=== PATIENT | male | born 1960 | race Caucasian/White ===

== ENCOUNTER 2019-07-25 17:53 | Emergency (ER) | payer OTHER, SELFPAY ==
[2019-07-25] VITALS (16 sets, daily range): BP systolic 120–160; BP diastolic 68–84; PULSE 79–101; RESP 18–23; TEMP 36.9; O2SAT 94–98
--- NOTE | 2019-07-25 17:59 | DI.RAD_ITS ---
SYMPTOMS/DIAGNOSIS: CHEST PAIN PA AND LATERAL CHEST: There are no prior comparison. The heart size is normal. The aorta is mildly tortuous and shows mild calcification. The lungs appear clear. There is an old left lateral rib fracture. There are mild degenerative changes of the thoracic spine. IMPRESSION: No acute abnormality.
--- NOTE | 2019-07-25 18:00 | ED.GENADUL_ITS ---
Discharge Plan Disposition Patient Disposition: HOME Condition: Stable Discharge Details Chief Complaint: Chest Pain Clinical Impression: Chest pain ED Provider: Gabo Fonseca Home Meds and New Rx's Prescriptions: Continued trazodone 100 mg Tablet 100 mg PO QHS RF: 0 lisinopril 10 mg Tablet 10 mg PO DAILY RF: 0 folic acid 1 mg Tablet 1 mg PO DAILY RF: 0 hydroxyzine HCl 10 mg Tablet 10 mg PO TID PRNRF: 0 cholecalciferol (vitamin D3) [Vitamin D3] 5,000 unit Tablet 5,000 unit PO DAILY RF: 0 thiamine mononitrate (vit B1) 100 mg Tablet 100 mg PO DAILY RF: 0 Discharge Instructions Instructions: Chest Pain (ED) Additional Instructions: your blood work and xray did not show any concerning findings follow up with your primary care provider within 1 week if you feel more ill, have more pain or worsening difficulty breathing return to the emergency department Medical Decision Making 59 yo male with hx of htn comes in with chief complaint of epigastric/lower chest pain. He states the pain has been going on intermittently for a month and seems to happen after eating. Denies radiation of pain and no pain with exertion. He denies any pain now and last had pain this AM. He called his pcp's officewho refered him here for an eval. His symptoms do not sound typical of acs and his heart score is 2. Will obtian troponin and given over 4 hours since last pain do not feel delta troponin would be of enefit if first is negative. He has no abdominal tenderness, no ruq pain or mercer's sign, doubt acute surgical pathology such as cholecystitis, sbo or pneumoperitoneum. No hypoxia or evidence of dvt so doubt PE and no tearing back pain andn ormal vascular exam so doubt dissection at this time pt remains asymptomatic and hd stable, labs and xray unremarkbable. Feel he is safe for d/c and f/u with pcp and return precautions given Differential Diagnosis nstemi, gastritis, gerd Imaging Data Radiologic Study: Attestation: I personally reviewed and interpreted this imaging study as follows: Imaging: X-Ray Radiologist's impression: no acute findings Lab Data Lab results reviewed: Yes I reviewed the patient's lab results. ECG Data Attestation: I personally reviewed and interpreted this ECG (s) as follows: Prior ECG tracings: not available for review Interpretation: sinus rhythm, rate of 95, pr 128, no acute st t wave ischemic findings HPI General Mode of arrival: ambulatory . Date/Time Provider Initiated Documentation: 07/25/19 17:59 . Limitations to Documentation: no limitations . Information obtained by: patient . History of Present Illness 59 year old M presents to the emergency department with the chief complaint of epigastric pain, described as mild, Quality is described as aching, and is localized to the chest and abdomen. Patient reports no radiation. Patient started experiencing this month(s) (1) and it has been intermittent. No relieving factors improve symptom(s), Eating worsens symptoms . Patient notes no other symptoms.. Patient did receive the following treatments prior to arrival, none Related Data Home Medications Medication Instructions Recorded Confirmed cholecalciferol (vitamin D3) 5,000 unit PO DAILY 07/25/19 07/25/19 [Vitamin D3] folic acid 1 mg PO DAILY 07/25/19 07/25/19 hydroxyzine HCl 10 mg PO TID PRN 07/25/19 07/25/19 lisinopril 10 mg PO DAILY 07/25/19 07/25/19 thiamine mononitrate (vit B1) 100 mg PO DAILY 07/25/19 07/25/19 trazodone 100 mg PO QHS 07/25/19 07/25/19 Allergies Allergy/AdvReac Type Severity Reaction Status Date / Time lactose AdvReac intolerant Unverified 07/25/19 18:03 Review of Systems Review of Systems All systems reviewed & are unremarkable except as noted in HPI and below Constitutional Denies chills, Denies fever(s) and Denies weakness Cardiovascular Denies dyspnea Respiratory Denies cough and Denies dyspnea Gastrointestinal Denies nausea and Denies vomiting Musculoskeletal Denies joint swelling Neurologic Denies weakness PFSH Social History Smoking/Tobacco Use Status: Former Tobacco Use Alcohol Intake: former Drug use: Current Sobriety Do you feel safe at home: Yes Do you feel safe in your relationship?: Yes Exam Const General: no acute distress Orientation: alert HENMT Head: normal to inspection Ears: external ears normal General nose exam: external nose normal Mouth: moist mucous membranes Eyes General: appearance normal, both eyes and all related structures Neck Neck: normal visual inspection Resp Effort & Inspection: normal respiratory effort and able to speak in complete sentences Cardio Rate: regular rate GI Palpation: soft Skin General skin exam: no rashes or lesions noted Neuro General: alert and oriented x3 Extrem General: normal to inspection Psych Mental Status: mental status grossly normal
[2019-07-25 18:29] LABS: Abs Immature Grans 0.08 k/cumm (0.0-0.09); Absolute Basophil Count 0.05 k/cumm (0.0-0.2); Absolute Eosinophil Count 0.21 k/cumm (0.0-0.7); Absolute Lymphocyte Count 2.05 k/cumm (1.2-3.4); Absolute Monocyte Count 0.65 k/cumm (0.11-0.7); Absolute Neutrophil Count 5.81 k/cumm (1.2-6.7); Basophils % 0.6; Eosinophils % 2.4; HCT 43.8 % (40.0-50.0); HGB 14.4 g/dL (13.5-17.5); Immature Grans % 0.9; Lymphocytes % 23.2; Mean Corp. HGB Concentration 32.9 g/dL (32.0-36.0); Mean Corpuscular Hemoglobin 31.2 pg (27.0-33.0); Mean Platelet Volume 9.2 fL (8.0-11.0); Monocytes % 7.3; Neutrophils % 65.6; Platelet Count 315 x1000/uL (130-400); RBC 4.61 m/cumm (4.50-6.00); RBC Distribution Width 12.2 % (11.8-14.1); White Blood Cell Count 8.85 k/cumm (4.4-10.8)
--- NOTE | 2019-07-25 18:36 | DI.VRAD_ITS ---
EXAM: XR Chest, 2 Views EXAM DATE/TIME: 07/25/2019 6:00 PM CLINICAL HISTORY: 59 years old, male; Chest pain; Type not specified TECHNIQUE: Imaging protocol: XR of the chest Views: 2 views. COMPARISON: No relevant prior studies available. FINDINGS: Lungs: Unremarkable. No consolidation. Pleural space: Unremarkable. No pleural effusion. No pneumothorax. Heart/Mediastinum: Unremarkable. No cardiomegaly. Vasculature: Calcification of the thoracic aorta and/or great vessels consistent with atherosclerotic vessel disease. Bones/joints: Unremarkable. IMPRESSION: No acute findings. Dictated and Authenticated by: Gabo Jacobo MD. Ordering:JAMES Ayon MD
[2019-07-25 18:48] LABS: ALT 26 U/L (16-63); AST 17 U/L (15-37); Albumin 3.8 g/dL (3.4-5.0); Alkaline Phosphatase 57 U/L (46-116); Anion Gap 8.8 mmol/L (3-11); BUN 15 mg/dL (7-18); Bilirubin, Total 0.3 mg/dL (0.2-1.0); CO2 28.2 mmol/L (21.0-32.0); CREATININE 1.15 mg/dL (0.70-1.30); Calcium 8.4 mg/dL (8.5-10.1); Chloride 101 mmol/L (98-107); Glucose 141 mg/dL (70-100); Potassium 4.1 mmol/L (3.5-5.1); Sodium 138 mmol/L (136-145); Total Protein 7.7 g/dL (6.4-8.2)
[2019-07-25 18:49] LABS: Troponin I < 0.05 ng/mL (0.00-0.06)
[2019-07-25 18:55] LABS: Lipase 135 U/L (73-393)
== END 2019-07-25 19:05 | disposition home or self-care (01) ==
PROVIDERS: Emergency Provider Emergency Medicine; PCP Physician Assistant Medical
DX: R10.13 Epigastric pain (principal); R07.9 Chest pain, unspecified; I10 Essential (primary) hypertension
CPT/HCPCS: 36415; 80053; 83690; 93005; 99285; 71046; 84484; 85025; 93010; 99284

== ENCOUNTER 2019-10-04 10:29 | Emergency (ER) | payer OTHER, SELFPAY ==
[2019-10-04 10:50] VITALS: BP 158/87; PULSE 92; RESP 18; TEMP 36.8; O2SAT 99
--- NOTE | 2019-10-04 11:30 | DI.RAD_ITS ---
EXAM: XR ANKLE RT COMPLETE and right foot INDICATION: pain. COMPARISON: No priors for comparison. TECHNIQUE: 2D digital imaging was performed. FINDINGS: There is a fracture of the distal right fibula. There is mild lateral displacement of the distal fra cture. No other fracture or dislocation is seen in the ankle or foot. There are mild degenerative c hanges seen in the ankle and foot. There is soft tissue swelling about the ankle particularly latera lly. IMPRESSION: Mildly displaced fracture of the distal right fibula.
--- NOTE | 2019-10-04 16:34 | ED.GENADUL_ITS ---
Discharge Plan Disposition Patient Disposition: HOME Condition: Good Discharge Details Chief Complaint: Orthopedic Clinical Impression: Ankle fracture Primary Care Provider: Lola Dsouza ED Provider: Amairani Gaspar Home Meds and New Rx's Prescriptions: No Action trazodone 100 mg Tablet 100 mg PO QHS RF: 0 lisinopril 10 mg Tablet 10 mg PO DAILY RF: 0 folic acid 1 mg Tablet 1 mg PO DAILY RF: 0 hydroxyzine HCl 10 mg Tablet 10 mg PO TID PRNRF: 0 cholecalciferol (vitamin D3) [Vitamin D3] 5,000 unit Tablet 5,000 unit PO DAILY RF: 0 thiamine mononitrate (vit B1) 100 mg Tablet 100 mg PO DAILY RF: 0 Discharge Instructions Instructions: Ankle Fracture (ED) Additional Instructions: Rest. Activities as tolerated. Elevate injury to prevent swelling. Crutches and fracture boot for managment of your fibula fracture Ice to the area of discomfort for 15 min. 3-5 times daily. Motrin every 8 hours with food or Tylenol every 6 hours for soreness if needed o lizett the counter for comfort. Followup with orthopedic doctor as discussed for reevaluation. Return for any worsening or concerns sooner if needed. Referrals: Jensen Paredes MD [ [facility] STAFF PHYSICIAN] - Discharge Data Discharge Date/Time-TO BE ENTERED AT DEPARTURE: 10/04/19 12:50 Medical Decision Making Is a 59-year-old patient who presents after a slip and fall on a hill 4 days ago. Patient ultimately presents with isolated right ankle pain. On exam has lateral malleolus tenderness. X-rays were obtained of the ankle and the foot. Of note patient has moderate bilateral distal edema for which we discussed evaluation today as well as conservative treatments. He does not have any desire to work this up at this time as he is planning to follow-up with his primary care doctor for this and has already been seen by primary care doctor for this. Once again patient was encouraged to elevate legs regularly as well as use of compression stockings and low-salt diet. X-rays of patient's ankle reveal a fibula fracture which is mildly displaced. Fracture boot was ordered. Rice encouraged, crutches provided. Encourage follow-up with customer operations specialist. The patient was stable and requested discharge. Prior to discharge, my usual and customary return precautions were reviewed with the patient - this included follow-up instructions and reasons to return to the Emergency Department if conditions worsens, does not improve as expected, or other new concerns arise. HPI General Date/Time Provider Initiated Documentation: 10/04/19 10:33 . HPI Narrative: This a patient who reports 4 days ago he had a trip and fall on a hill where he rolled his right ankle. Patient reports persistent ankle pain since that time with ambulation. Patient reports baseline swelling of his distal extremities. Patient has been working with his primary care doctor on bilateral lower leg edema. Patient reports she is not concerned with the bilateral edema which seems unchanged at this time but is concerned with right ankle pain only. Denies associated numbness, tingling or weakness. Patient denies any other sites of pain during the fall. Denies head neck or back pain. No upper extremity complaints. No open wounds on the ankle. Related Data Home Medications Medication Instructions Recorded Confirmed cholecalciferol (vitamin D3) 5,000 unit PO DAILY 07/25/19 10/04/19 [Vitamin D3] folic acid 1 mg PO DAILY 07/25/19 10/04/19 hydroxyzine HCl 10 mg PO TID PRN 07/25/19 10/04/19 lisinopril 10 mg PO DAILY 07/25/19 10/04/19 thiamine mononitrate (vit B1) 100 mg PO DAILY 07/25/19 10/04/19 trazodone 100 mg PO QHS 07/25/19 10/04/19 Allergies Allergy/AdvReac Type Severity Reaction Status Date / Time lactose AdvReac intolerant Unverified 10/04/19 10:55 General Stated Complaint: Orthopedic ROB: 4 Review of Systems All systems reviewed & are unremarkable except as noted in HPI and below Constitutional Constitutional: Denies chills, Denies fatigue, Denies fever(s), Denies headache(s) and Denies malaise ENT Ears, Nose, Mouth, and Throat: Denies headache(s) Musculoskeletal Musculoskeletal: Denies back pain, Denies deformity, Denies numbness and Denies tingling Integumentary/Breasts Skin/Breast: Denies wounds Neurologic Neurologic: Denies headache(s), Denies numbness and Denies tingling Endocrine Endocrine: Denies fatigue [facility] Social History Smoking/Tobacco Use Status: Former Tobacco Use Alcohol Intake: former Drug use: Current Sobriety Do you feel safe at home: Yes Do you feel safe in your relationship?: Yes Exam Narrative Exam Narrative: CONST: Healthy appearing patient, in no acute distress. Well hydrated. Alert and alert. NECK: Normal visual inspection. FROM. Trachea midline. No Midline tenderness. MUSCULOSKELETAL: Normal Gait. Straight leg raise intact, no knee pain with palpation motion pain with palpation. Distal edema symmetrical bilaterally, 2+. Patient with no significant Achilles tenderness. Obvious tenderness noted to the lateral malleolus, mild medial malleolus tenderness. Limited flexion extension due to pain. Ecchymosis noted to the lateral aspect of the ankle. Pulses intact distally. No obvious foot drop. SKIN: Normal. Dry. No rashes. NEURO: Alert and awake. Speech clear. PSYCH: Normal affect. Cooperative. Course Vital Signs Vital signs: Vital Signs Temperature 36.8 C 10/04/19 10:50 Pulse 92 H 10/04/19 10:50 Respiratory Rate 18 10/04/19 10:50 Blood Pressure 158/87 H 10/04/19 10:50 Pulse Oximetry 99 10/04/19 10:50 Temperature 36.8 C 10/04/19 10:50 Temperature Source Skin 10/04/19 10:50 Pulse 92 H 10/04/19 10:50 Respiratory Rate 18 10/04/19 10:50 Respiratory Effort 10/04/19 10:57 Blood Pressure 158/87 H 10/04/19 10:50 Blood Pressure Position Sitting 10/04/19 10:50 Pulse Oximetry 99 10/04/19 10:50 Oxygen Delivery Method Room Air 10/04/19 10:50 Oxygen Flow Rate 0 10/04/19 10:50 Pain Level 5 10/04/19 12:22
== END 2019-10-04 12:50 | disposition home or self-care (01) ==
PROVIDERS: Emergency Provider Physician Assistant; PCP Physician Assistant Medical
DX: S82.891A Other fracture of right lower leg, initial encounter for closed fracture (principal); W17.81XA Fall down embankment (hill), initial encounter
CPT/HCPCS: 99284; 73610; 73630; 99282; E0114; L4361

== ENCOUNTER 2019-10-11 09:21 | Outpatient (CLI) | payer OTHER, SELFPAY ==
--- NOTE | 2019-10-11 09:02 | DI.RAD_ITS ---
EXAM: XR ANKLE RT COMPLETE INDICATION: f/u fracture. COMPARISON: No exams were available for comparison TECHNIQUE: 2D digital imaging was performed. FINDINGS: There has been no change in the alignment of the distal fibular fracture. Some soft tissue swelling remains present.
== END 2019-10-11 09:41 ==
PROVIDERS: PCP Physician Assistant Medical; Visit Provider Student in an Organized Health Care Education/Training Program
DX: S82.831D Other fracture of upper and lower end of right fibula, subsequent encounter for closed fracture with routine healing (principal); M79.89 Other specified soft tissue disorders
CPT/HCPCS: 73610

== ENCOUNTER 2019-11-29 09:37 | Outpatient (CLI) | payer OTHER, SELFPAY ==
--- NOTE | 2019-11-29 09:01 | DI.RAD_ITS ---
EXAM: XR ANKLE RT COMPLETE INDICATION: f/u fracture. COMPARISON: XR ANKLE RT COMPLETE from 10/11/2019 TECHNIQUE: 2D digital imaging was performed. FINDINGS: There has been no change in the alignment of the previously noted lateral malleolar fracture. There is increased callous formation. No new abnormalities are seen.
== END 2019-11-29 09:57 ==
PROVIDERS: PCP Physician Assistant Medical; Visit Provider Student in an Organized Health Care Education/Training Program
DX: S82.61XD Displaced fracture of lateral malleolus of right fibula, subsequent encounter for closed fracture with routine healing (principal)
CPT/HCPCS: 73610

== ENCOUNTER 2020-01-17 08:40 | Outpatient (CLI) | payer OTHER, SELFPAY ==
--- NOTE | 2020-01-17 08:00 | DI.RAD_ITS ---
EXAM: XR ANKLE RT COMPLETE INDICATION: Follow up. COMPARISON: XR ANKLE RT COMPLETE from 10/11/2019 TECHNIQUE: 2D digital imaging was performed. FINDINGS: There has been no change in the alignment of lateral malleolar fracture. No new abnormalities are i dentified. DATA REPOSITORY: RADIATION DOSE DELIVERED:
== END 2020-01-17 09:00 ==
PROVIDERS: PCP Physician Assistant Medical; Visit Provider Student in an Organized Health Care Education/Training Program
DX: S82.831D Other fracture of upper and lower end of right fibula, subsequent encounter for closed fracture with routine healing (principal)
CPT/HCPCS: 73610

== ENCOUNTER 2020-03-19 08:55 | Outpatient (CLI) | payer OTHER, SELFPAY ==
--- NOTE | 2020-03-19 07:45 | DI.RAD_ITS ---
EXAM: XR ANKLE RT COMPLETE CLINICAL HISTORY: fu right ankle fracture TECHNIQUE: COMPARISON: XR ANKLE RT COMPLETE from 01/17/2020 FINDINGS: Three views were obtained and show previously described healing fracture of the lateral malleolus wit h no gross interval change in alignment in comparison with examination of January 17. The ankle mor tise remains well maintained. IMPRESSION:
== END 2020-03-19 09:15 ==
PROVIDERS: PCP Physician Assistant Medical; Visit Provider Student in an Organized Health Care Education/Training Program
DX: S82.61XD Displaced fracture of lateral malleolus of right fibula, subsequent encounter for closed fracture with routine healing (principal)
CPT/HCPCS: 73610

== ENCOUNTER 2024-04-07 11:32 | Emergency (ER) | payer OTHER, SELFPAY ==
[2024-04-07 11:40] VITALS: BP 179/115; PULSE 97; RESP 16; TEMP 36.5
--- NOTE | 2024-04-07 13:50 | DI.MRI_ITS ---
Exam(s) MR CERVICAL SPINE WO EXAM: MR CERVICAL SPINE WO CLINICAL HISTORY: unable to raise arm over head, bicep weakness righ TECHNIQUE: Multiplanar multisequence MRI of the cervical spine was performed without intravenous con trast. COMPARISON: No exams were available for comparison FINDINGS: The examination is limited due to patient motion artifact. BONES: Vertebral body heights are maintained. Intervertebral disc spaces are normal. There is straigh tening of the normal cervical lordosis. There is 3 mm retrolisthesis of C5 on C6. Mild degenerative endplate signal changes are seen particularly at C5-6 and C6-C7. CERVICAL CORD: Craniovertebral junction is unremarkable. The cervical cord is normal size and signal intensity. SOFT TISSUES: Unremarkable. C2-3: No disc herniation or bulge is identified. No significant central spinal canal or neural forami nal stenosis. C3-4: No disc herniation or bulge is identified. No significant central spinal canal or neural forami nal stenosis C4-5: There is prominence of the osteophyte disc complex causing narrowing of the AP diameter of the central spinal canal. Uncovertebral joint hypertrophy causes bilateral neural foraminal stenosis, ri ght greater than left. C5-6: There is prominence of the osteophyte disc complex causing mild narrowing of the central spinal canal. The AP diameter is 8 mm. Uncovertebral joint hypertrophy causes bilateral moderate to sever e neural foraminal stenosis. C6-7: Mild prominence of the osteophyte disc complex. Degenerative changes of the uncovertebral join ts causes [id number] bilateral neural foraminal stenosis, left greater than right. C7-T1: Mild prominence of the osteophyte disc complex. No significant central spinal canal or neural foraminal stenosis IMPRESSION: Multilevel degenerative changes in the cervical spine particularly from C4-5 through C6-C7. Findings do result in central spinal canal and neural foraminal stenosis as described above. DATA REPOSITORY:
--- NOTE | 2024-04-07 13:53 | ED.GENADUL_ITS ---
Discharge Plan Disposition Patient Disposition: Home Condition: Stable Discharge Details Clinical Impression: Cervical radiculopathy at C5 Primary Care Provider: Lola Dsouza ED Provider: Maryjo Fiore Home Meds and New Rx's Prescriptions: New prednisone 20 mg tablet 40 mg PO ONCE Qty: 10 0RF Continued cyanocobalamin (vitamin B-12) 1,000 mcg capsule 1,000 mcg PO DAILY folic acid 1 mg Tablet 1 mg PO DAILY cholecalciferol (vitamin D3) [Vitamin D3] 5,000 unit Tablet 5,000 unit PO DAILY thiamine mononitrate (vit B1) 100 mg Tablet 100 mg PO DAILY losartan [Cozaar] 100 mg tablet 100 mg PO DAILY gabapentin [Neurontin] 300 mg capsule 1,200 mg PO QHS Patient Comments: prescribed 900mg but takes 1200mg atorvastatin 40 mg tablet 40 mg PO DAILY Discharge Instructions Additional Instructions: Please follow-up with your primary care physician this upcoming week I [facility], [facility] if you do not hear from them next week Take the prednisone as prescribed refrain from lifting heavy items >10 lbs as much as possible Return earlier should he develop dramatically worsening pain or change near weakness or sensation Referrals: Lola Dsouza [Primary Care Provider] - Discharge Data Discharge Date/Time-TO BE ENTERED AT DEPARTURE: 04/07/24 15:05 HPI General Date/Time Provider Initiated Documentation: 04/07/24 12:23 . HPI Narrative: 64-year-old male presenting with 2 weeks of right shoulder pain and difficulty raising arm above head. States that his arm is become progressively more weak. Denies any chest pain or shortness of breath. Denies any fever or chills. Denies any pain in actual right shoulder. Denies any calf pain or swelling. Had a chiropractic manipulation yesterday but states this did not exacerbate his symptoms there does not improving [facility] the [facility] instructed patient to come to the emergency department for assessment. Related Data Home Medications Medication Instructions Recorded Confirmed cholecalciferol (vitamin D3) 125 5,000 unit PO DAILY 07/25/19 04/07/24 mcg (5,000 unit) tablet (Vitamin D3) folic acid 1 mg tablet 1 mg PO DAILY 07/25/19 04/07/24 thiamine mononitrate (vit B1) 100 100 mg PO DAILY 07/25/19 04/07/24 mg tablet cyanocobalamin (vitamin B-12) 1,000 mcg PO DAILY 11/29/19 04/07/24 1,000 mcg capsule atorvastatin 40 mg tablet 40 mg PO DAILY 04/07/24 04/07/24 gabapentin 300 mg capsule 1,200 mg PO QHS 04/07/24 04/07/24 (Neurontin) losartan 100 mg tablet (Cozaar) 100 mg PO DAILY 04/07/24 04/07/24 prednisone 20 mg tablet 40 mg (2 x 20 mg) PO ONCE #10 tabs 04/07/24 Previous Rx's Medication Instructions Recorded prednisone 20 mg tablet 40 mg (2 x 20 mg) PO ONCE #10 tabs 04/07/24 Allergies Allergy/AdvReac Type Severity Reaction Status Date / Time lactose AdvReac intolerant Verified 04/07/24 11:36 General Stated Complaint: Orthopedic ROB: 3 Exam Narrative Exam Narrative: Patient alert and oriented, pupils equal round reactive to light and accommodation, extraocular muscles intact pain C6-C7 paraspinally, difficulty raising arm above head, weakness with bicep flexion, lungs clear to auscultation, cardiac rate rhythm regular, distal pulses intact all 4 extremities alert and oriented x 4, hand grasp intact, negative pronator drift, cranial nerves II through XII intact negative [id number], negative heel greco, ambulatory with steady gait Course Vital Signs Vital signs: Vital Signs Temperature 36.5 C 04/07/24 11:40 Pulse 97 H 04/07/24 11:40 Respiratory Rate 16 04/07/24 11:40 Blood Pressure 179/115 H 04/07/24 11:40 Temperature 36.5 C 04/07/24 11:40 Temperature Source Temporal Artery Scan 04/07/24 11:40 Pulse 97 H 04/07/24 11:40 Respiratory Rate 16 04/07/24 11:40 Respiratory Effort Normal, Non-Labored 04/07/24 11:42 Blood Pressure 179/115 H 04/07/24 11:40 Blood Pressure Position Sitting 04/07/24 11:40 Oxygen Delivery Method Room Air 04/07/24 11:40 Oxygen Flow Rate 0 04/07/24 11:40 Pain Level 0 04/07/24 12:27 Comment no OTC, states 'takes too many meds'. 04/07/24 11:40 Medical Decision Making 62-year-old male presenting with right arm weakness, on exam his exam is consistent with likely C5-C6 radiculopathy, MRI was ordered secondary to biceps weakness which I suspect is C5-C6 herniated disc. Patient has an otherwise no nfocal neurological exam. MRI was ordered which shows significant foraminal stenosis without any evidence of immersion abnormality on exam. Will place patient on steroids and encouraged follow-up with primary care physician. No evidence of central process on exam today. Encouraged recheck in 48 to 72 hours. Return precautions reviewed and patient expressed understanding. Encouraged to have blood pressure rechecked by primary care physician 24 to 48 hours Quality:SDOH Health Related Social Needs: No Data to Display PFSH All Active Problems (Updated 04/07/24 @ 14:44 by IAN Hi) Cervical radiculopathy at C5 (Acute) Obesity (Chronic) Uncontrolled hypertension (Acute) History of prior cigarette smoking (Acute) Alcohol abuse (Chronic) Fracture of distal end of fibula (Acute 09/30/19) Social History Smoking/Tobacco Use Status: Former Tobacco Use Smoking risk assessment performed?: Yes Alcohol Intake: former Drug use: Current Sobriety Housing: house Current gender identity: male Do you feel safe at home: Yes Do you feel safe in your relationship?: Yes
--- NOTE | 2024-04-07 14:45 | NUR.NOTE ---
Nursing Note: [facility] for [facility]. Sharee, ED
[2024-04-07 15:04] VITALS: BP 193/106; PULSE 83; RESP 12; O2SAT 97
== END 2024-04-07 15:05 | disposition home or self-care (01) ==
PROVIDERS: Emergency Provider Physician Assistant; PCP Physician Assistant Medical
DX: M48.02 Spinal stenosis, cervical region (principal); M54.12 Radiculopathy, cervical region; I10 Essential (primary) hypertension; Z87.891 Personal history of nicotine dependence
CPT/HCPCS: 99284; 72141

== ENCOUNTER 2024-12-28 00:28 | Outpatient (CLI) | payer OTHER, SELFPAY ==
--- NOTE | 2024-12-28 | DI.RAD_ITS ---
Exam(s) XR SHOULDER RT COMPLETE 2+V EXAM: XR SHOULDER RT COMPLETE 2+V CLINICAL HISTORY: Rt shoulder pain, M25.511; [id number]. TECHNIQUE: 2D digital imaging was performed. Five views. COMPARISON: No exams were available for comparison FINDINGS: BONES: No acute fracture is present. No bony destructive lesion is seen. JOINTS: No dislocation present. Spurring at the AC joint and undersurface of the acromion. The garima ohumeral joint space is maintained. There is mild spurring at the glenoid. SOFT TISSUE: Normal. IMPRESSION: Degenerative changes, greater at the AC joint. DATA REPOSITORY: RADIATION DOSE DELIVERED:
== END 2024-12-28 00:48 ==
PROVIDERS: PCP Internal Medicine; Visit Provider Internal Medicine
DX: M19.011 Primary osteoarthritis, right shoulder (principal)
CPT/HCPCS: 73030

== ENCOUNTER 2025-04-02 07:43 | Observation (INO) | payer OTHER, SELFPAY ==
[2025-04-02] VITALS (44 sets, daily range): BP systolic 101–150; BP diastolic 44–75; PULSE 65–112; RESP 12–30; TEMP 36.8–37.5; O2SAT 90–99; BMI 30.7
--- NOTE | 2025-04-02 08:15 | RT.EKG_ITS ---
APPROVED REPORT Exam: Resting ECG Reason for Exam: syncope Patient Location: E HR:96 bpm ECG Measurements Heart Rate 96 AXIS VA 147 P 61 QRSd 76 QRS 54 QT 332 T 8 QTc 421 Conclusion Sinus rhythm 96 normal axis bigeminy no stemi
--- NOTE | 2025-04-02 08:30 | ED.GENADUL_ITS ---
Discharge Plan Disposition Patient Disposition: Admit to [facility] Condition: Stable Discharge Details Chief Complaint: GenMedical Clinical Impression: Perirectal abscess Admit Date/Time: 04/02/25 11:07 Admit Provider: Silviano Jones Attending Provider: Silviano Jones Primary Care Provider: Renita Vargas ED Provider: Birgit Florentino Discharge Data Discharge Date/Time-TO BE ENTERED AT DEPARTURE: 04/02/25 13:02 HPI General Date/Time Provider Initiated Documentation: 04/02/25 08:03 . Limitations to Documentation: no limitations . Information obtained by: patient, family (mom with whom he resides), RN notes reviewed and old records reviewed . History of Present Illness 65 year old M presents to the emergency department with the chief complaint of diarrhea, fecal incontinence, hemorrhoids, syncope, described as severe (diarrhea has been frequent- has hx of hemorrhoids so this was similar), Quality is described as aching (rectum), and is localized to the buttocks. Patient reports no radiation. Patient started experiencing this month(s) (1) and it has been constant. No relieving factors improve symptom(s), No exacerbating factors reported . Patient notes fever/chills (chills, no fever), loss of appetite (starting yesterday), malaise (since yesterday), nausea/vomiting and syncope; denies chest pain, cough, diaphoresis, headaches, rash, shortness of breath and weakness. Patient did receive the following treatments prior to arrival, none Related Data Home Medications ?Medication ?Instructions ?Recorded ?Confirmed cholecalciferol (vitamin D3) 125 5,000 unit PO DAILY 07/25/19 04/02/25 mcg (5,000 unit) tablet (Vitamin D3) folic acid 1 mg tablet 1 mg PO DAILY 07/25/19 04/02/25 cyanocobalamin (vitamin B-12) 1,000 mcg PO DAILY 11/29/19 04/02/25 1,000 mcg capsule atorvastatin 40 mg tablet 40 mg PO DAILY 04/07/24 04/02/25 gabapentin 300 mg capsule 1,200 mg PO QHS 04/07/24 04/02/25 (Neurontin) losartan 100 mg tablet (Cozaar) 100 mg PO DAILY 04/07/24 04/02/25 chlorthalidone 25 mg tablet 25 mg PO DAILY 04/02/25 04/02/25 Allergies Allergy/AdvReac Type Severity Reaction Status Date / Time lactose AdvReac intolerant Verified 04/02/25 07:57 General Stated Complaint: GenMedical ROB: 3 Review of Systems Constitutional Constitutional: Reports as per HPI, Denies fever(s) and Denies headache(s) ENT Ears, Nose, Mouth, and Throat: Denies headache(s) Cardiovascular Cardiovascular: Reports as per HPI, Denies chest pain and Denies dyspnea Respiratory Respiratory: Reports as per HPI, Denies cough and Denies dyspnea Gastrointestinal Gastrointestinal: Reports as per HPI Genitourinary Genitourinary: Denies system reviewed and no additional complaints, except as documented (patient denies any change in urinary habits) Musculoskeletal Musculoskeletal: Reports as per HPI and Denies back pain Integumentary/Breasts Skin/Breast: Reports as per HPI Neurologic Neurologic: Reports as per HPI and Denies headache(s) Exam Const General: cooperative, healthy appearing, comfortable, no acute distress, well developed and anxious Nutritional Appearance: average body habitus and well nourished Orientation: alert and awake Resp Effort & Inspection: normal respiratory effort, able to speak in complete sentences and no respiratory distress Auscultation: no rales, no rhonchi and wheezes expiratory wheezes and scattered wheezes Cardio Rate: regular rate Rhythm: regular rhythm Heart Sounds: S1 normal and S2 normal GI Inspection: normal to inspection and scar (umbilical from prior hernia repair) Palpation: soft, no hepatosplenomegaly, no guarding, nontender and No ascites Percussion: normal to percussion Auscultation: normal bowel sounds Rectal Exam: normal sphincter tone, No abnormal stool, No fissure and No laceration Back/Spine/Pelvis Back: no CVA tenderness Back/spine/pelvis image: 2 1. area of erythema, pain and induration. No focal collection, runs along the inner left buttock. No opening or drainage noted. Skin General skin exam: no rashes or lesions noted Trauma: no lacerations or abrasions Neuro General: patient alert and patient awake Cognition: normal cognition Speech: speech normal Gait: normal gait Course Vital Signs Vital signs: Vital Signs Temperature 37.4 C 04/02/25 07:48 Pulse 100 H 04/02/25 07:48 Respiratory Rate 16 04/02/25 07:48 Blood Pressure 105/44 L 04/02/25 07:48 Pulse Oximetry 98 04/02/25 07:48 Temperature 37.4 C 04/02/25 07:51 Temperature Source Oral 04/02/25 07:51 Pulse 100 H 04/02/25 07:51 Respiratory Rate 16 04/02/25 07:51 Respiratory Effort Normal, Non-Labored 04/02/25 07:51 Respiratory Depth Normal 04/02/25 07:51 Respiratory Pattern Normal 04/02/25 07:51 Blood Pressure 105/44 L 04/02/25 07:51 Blood Pressure Position Supine 04/02/25 07:51 Pulse Oximetry 98 04/02/25 07:51 Oxygen Delivery Method Room Air 04/02/25 07:51 Oxygen Flow Rate 0 04/02/25 07:48 Pain Level 4 04/02/25 07:51 Comment pain is located in anus 04/02/25 07:51 Medical Decision Making Patient is a pleasant 65-year-old gentleman, brought in by his mother, past medical history includes COPD, marijuana dependence, hypertension, elevated cholesterol, prior ETOH abuse, not active for several years, C4-5 surgical fixation, abdominal hernia repairs, presenting today with c/c of diarrhea, fecal incontinence, hemorrhoids, syncope. He reports that he began with hemorrhoids about one month ago, this has been an ongoing issue that typically resolves with preparation H and time. However, he reports that this opened about 8 days ago and he noted blood but this was also as he expected in the course of the hemorrhoids. State his rectal discomfort persists and is more to the left side. He reports that about 2 weeks ago he began having diarrhea and fecal incontinence. He reports that the diarrhea has progressively worsened. States that the rectal discomfort is increased with any type of increased intra- abdominal pressure such as when he is coughing or bearing down. Incontinence is intermittent and sounds to be more associated with increased urgency. He is not having any urinary incontinence. He denies any back pain. He did have cervical spine surgery last year but states that he has been improving with this, working with physical therapy. No history of back trauma or previous back pain. He denies any weakness or sensory deficits in his lower extremities. Reports that until yesterday appetite has been stable. Yesterday he began having some chills, diminished appetite general malaise. He also describes 2 episodes of syncope yesterday both or around the time when he went from a sitting to standing position such as when he was trying to get to the restroom. States that he did fully lose consciousness but that prior to doing so he felt prodromal symptoms including lightheadedness, dizziness, visual changes and was able to call for his mother who, each time, found him awake on the floor. Denies any chest pain or shortness of breath. No change in medications. Denies any abdominal pain or back pain. ECG reviewed by Dr. Gunn, no acute arrythmia or ischemic changes noted. On exam, patient appears non-toxic. He is slightly hypotensive, particualrly compared to previous readings which could contribute to his syncopal episodes yesterday. He states this has been dropping more- he has been monitoring at home. this could be associated with dehydration as patient feels that the fluids he drinks are contributing to his diarrhea. No abdominal tenderness. No saddle paresthesias, no LE weakness or deficits. No back pain. Will begin with labs and hydration. Patient changing and IV beign obtained, will then complete rectal exam with nurse present. While examining rectum, he was noted to have good sphincter tone and no enlarged hemorrhoids. However, the length of the left buttock from the cleft to the gluteal fold is erythematous, tender, inderated and fluctuant. Concerned for large abscess. This was surprising given his description. With the size, concerned for possible deeper tracking, especially with his hypotension, syncope, chills. Will obtain CT to evaluate further. WBC 23. He is receiving PipTaz and will give another unit of fluids. He also has MYRNA with creatinine of 2.1 Reviewed the imaging, abscess noted. Consulted with hospitalist who advised likely admission but will come to evlauate the patient in the ED. [facility] He would prefer to stay here. They advised that if he does go to [place], will need to pay for transfer so will keep him here in line with patient wishes. Patient on second liter of fluid, BP has improved. MYRNA likely associated with dehdyration. Awaiting UA. He is endorsing more pain after moving for CT, will give APAP and Morphine. He has been NPO. Dr. Jones with surgery evaluated the patient. Patient going to OR then to admission for continued abx. Discussed plan with patient and his mother, they are in agreement with this plan. Quality:SDOH Health Related Social Needs: 2 No Data to Display PFSH All Active Problems (Updated 04/02/25 @ 15:34 by IAN Rinaldi) Perirectal abscess (Acute) Obesity (Chronic) Uncontrolled hypertension (Acute) History of prior cigarette smoking (Acute) Alcohol abuse (Chronic) Fracture of distal end of fibula (Acute 09/30/19) Social History Smoking/Tobacco Use Status: Former Tobacco Use Smoking risk assessment performed?: Yes Alcohol Intake: former Drug use: Occasionally Substance use type: marijuana Housing: house Current gender identity: male Do you feel safe at home: Yes Do you feel safe in your relationship?: Yes
[2025-04-02] MEDS: Lactated Ringers 1,000 ML 1000 ML IV (09:03)
[2025-04-02 09:10] LABS: Abs Immature Grans 0.25 10^3/uL (0.0-0.06); Basophils % 0.3 %; HCT 40.9 % (40.0-50.0); Immature Grans % 1.1 %; MCH 31.2 pg (27.0-33.0); MCHC 34.2 % (32.0-36.0); MCV 91 fL (80-95); MPV 9.3 fL (8.0-11.0); Monocytes % 7.5 %; Neutrophils % 87.1 %; Platelet Count 365 10^3/uL (130-400); RBC 4.49 10^6/uL (4.36-5.78); RDW 11.8 % (11.8-14.1); RDW-SD 39.4 fL; WBC 23.06 10^3/uL (4.4-10.8)
[2025-04-02 09:11] LABS: Absolute Basophil Count 0.07 10^3/uL (0.0-0.2); Absolute Lymphocyte Count 0.92 10^3/uL (1.2-3.4); Absolute Monocyte Count 1.73 10^3/uL (0.1-0.8); Absolute Neutrophil Count 20.09 10^3/uL (1.2-6.7)
[2025-04-02 09:20] LABS: Diff Comment Diff Reviewed; RBC Morphology Normal
[2025-04-02 09:46] LABS: ALT 13 U/L (16-63); AST 13 U/L (15-37); Albumin 3.2 g/dL (3.4-5.0); Alkaline Phosphatase 74 U/L (46-116); Anion Gap 8.9 mmol/L (3-11); BUN 40 mg/dL (7-18); Bilirubin, Total 1.2 mg/dL (0.2-1.0); CO2 29.1 mmol/L (21.0-32.0); CREATININE 2.1 mg/dL (0.70-1.30); Calcium 9.3 mg/dL (8.5-10.1); Chloride 93 mmol/L (98-107); Estimated GFR 34.72 (mL/min/1.73m2); Glucose 136 mg/dL (74-106); Magnesium 1.4 mg/dL (1.8-2.4); Potassium 3.4 mmol/L (3.5-5.1); Sodium 131 mmol/L (136-145); Total Protein 7.9 g/dL (6.4-8.2)
[2025-04-02 09:58] LABS: Lactate 1.4 mmol/L (<or=2.0)
--- NOTE | 2025-04-02 10:15 | DI.CT_ITS ---
Exam(s) CT ABDOMEN PELVIS WO EXAM: CT ABDOMEN PELVIS WO CLINICAL HISTORY: incontinent bowels. TECHNIQUE: Imaging Protocol: Axial computed tomography images with coronal and sagittal reformatted images were created and reviewed. COMPARISON: No exams were available for comparison FINDINGS: ABDOMEN: Lung Bases: Normal where visualized. Liver: Normal density. No measurable mass. Gallbladder and biliary tract: No radiodense calculus or biliary ductal dilation. Pancreas: Normal density, no abnormal calcifications or inflammatory process. Spleen: Normal. Kidneys: Normal size, contour and axis.No radiodense stones or obstructive uropathy. No masses seen. There is mild stranding in the soft tissues around both kidneys. This is nonspecific. Infectious or inflammatory process cannot be excluded however. Adrenal glands: No mass is seen. Lymph nodes: Within normal limits. Abdominal Aorta: Abdominal portion non-dilated. Atherosclerotic calcification is present. PELVIS: Bladder:Symmetric distention, no gross wall thickening. Bowel: There is diverticulosis of the colon without evidence of acute diverticulitis. The appendix m easures 8 mm in diameter. No wall thickening, appendicoliths or Shelby appendiceal inflammation is see n. There is no evidence of bowel obstruction or bowel wall thickening. The stomach is incompletely distended limiting evaluation. Peritoneal cavity: No ascites, collection or mesenteric inflammatory response. No free air. Reproductive organs: Unremarkable as visualized. Bones: Within normal limits. There is an old healed right rib fracture. Soft Tissues: There is a left perirectal abscess present measuring 3.2 transverse by 5.38 AP by 9.2 c raniocaudad. There is also a small air-fluid collection in the right perirectal soft tissues measuri ng 1.5 cm. IMPRESSION: 1. Left perirectal abscess measuring 3.2 x 5.4 x 9.2 cm. 2. The appendix measures 8 mm in diameter. No Shelby appendiceal inflammation, appendicoliths or wall thickening is seen. Please correlate with the patient's clinical history. 3. Colonic diverticulosis without evidence of acute diverticulitis. 4. Mild stranding seen around the kidneys in the soft tissues. This is nonspecific however, an infec tious or inflammatory process cannot be excluded. Please correlate clinically. RADIATION DOSE DELIVERED: 709.79mGy.cm Total DLP DATA REPOSITORY: All CT scans at this facility are submitted to the National Radiology Data Registry (NRDR) Dose Index Registry (DIR) with the [employer] (A[employer]). RADIATION OPTIMIZATION: All CT scans at this facility use at least one of these dose optimization te chniques: automated exposure control; mA and/or kV adjustment per patient size (includes targeted exa ms where dose is matched to clinical indication); or iterative reconstruction.
[2025-04-02] MEDS: PIPERACILLIN/TAZO 3.375 GM in Normal Saline 50 ML IVPB ×2 (10:26→16:47)
[2025-04-02] MEDS: Normal Saline 1,000 ML 1000 ML IV (10:27)
[2025-04-02] MEDS: MAGNESIUM SULFATE 2 GM/50 ML BAG IV_INF (10:59)
--- NOTE | 2025-04-02 11:03 | W.PREOPHP ---
Assessment and Plan Assessment and plan (1) Perirectal abscess: Status: Acute Assessment and plan: Humberto appears to have a large perirectal abscess, with elements of necrotizing soft tissue infection which is complicated by acute kidney injury. He is already received a dose of Zosyn. At this point, I think early control with incision and drainage, for tissue sampling to guide antibiotics is the most appropriate treatment. I explained the nature of the procedure, what to expect in terms of recovery, which will almost certainly require packing, with frequent dressing changes. We also talked about the natural history of these abscesses. And the possibility for the need for diverting colostomy if were not able to get this under control with drainage. I think Humberto has a good understanding of this. He is able to provide informed consent today, we will make arrangements to proceed to the operating room soon as possible. History of Present Illness History of Present Illness Chief Complaint: Perianal pain Narrative: Humberto is 65 years old. He comes to the emergency department with increasing pain around his anus. He first noticed it about 2 weeks ago, and thought that it was probably a hemorrhoid. He does have hemorrhoids intermittently, but he typically treats with Preparation H. The pain became more intense over the past few days, and yesterday started to feel quite lethargic and ill. He came to the emergency department today because of fevers and pain. In the ER, was found have a leukocytosis around 22,000, and some evidence of acute kidney injury. He underwent a CT scan that demonstrated a large perirectal abscess. His past medical history includes hypertension. He has undergone multiple inguinal hernia repairs. He tells me he is undergone screening colonoscopy in the past. He cannot recall the last time. His best he understands, he has undergone polypectomy during those. Review of Systems Constitutional Constitutional: Reports fatigue, Reports fever(s) and Reports lethargy Eyes Eyes: Reports system reviewed and no additional complaints, except as documented ENT Ears, Nose, Mouth, and Throat: Reports system reviewed and no additional complaints, except as documented Cardiovascular Cardiovascular: Denies chest pain and Denies dyspnea Respiratory Respiratory: Denies chest congestion and Denies dyspnea Gastrointestinal Gastrointestinal: Denies abdominal pain, Denies change in bowel habits and Denies constipation Comments: Perianal pain Genitourinary Genitourinary: Reports system reviewed and no additional complaints, except as documented Psychiatric Psychiatric: Reports system reviewed and no additional complaints, except as documented Endocrine Endocrine: Reports system reviewed and no additional complaints, except as documented and Reports fatigue Hematologic/Lymphatic Hematologic/Lymphatic: Denies easy bleeding and Denies easy bruising PFSH All Active Problems (Updated 04/02/25 @ 11:35 by Silviano Jones MD) Perirectal abscess (Acute) Obesity (Chronic) Uncontrolled hypertension (Acute) History of prior cigarette smoking (Acute) Alcohol abuse (Chronic) Fracture of distal end of fibula (Acute 09/30/19) Social History Smoking/Tobacco Use Status: Former Tobacco Use Smoking risk assessment performed?: Yes Alcohol Intake: former Drug use: Occasionally Substance use type: marijuana Housing: house Current gender identity: male Do you feel safe at home: Yes Do you feel safe in your relationship?: Yes Meds Allergies and Home Medications Allergies Allergy/AdvReac Type Severity Reaction Status Date / Time lactose AdvReac intolerant Verified 04/02/25 07:57 Home Medications ?Medication ?Instructions ?Recorded ?Confirmed ?Type cholecalciferol (vitamin D3) 125 5,000 unit PO DAILY 07/25/19 04/02/25 History mcg (5,000 unit) tablet (Vitamin D3) folic acid 1 mg tablet 1 mg PO DAILY 07/25/19 04/02/25 History cyanocobalamin (vitamin B-12) 1,000 mcg PO DAILY 11/29/19 04/02/25 History 1,000 mcg capsule atorvastatin 40 mg tablet 40 mg PO DAILY 04/07/24 04/02/25 History gabapentin 300 mg capsule 1,200 mg PO QHS 04/07/24 04/02/25 History (Neurontin) losartan 100 mg tablet (Cozaar) 100 mg PO DAILY 04/07/24 04/02/25 History chlorthalidone 25 mg tablet 25 mg PO DAILY 04/02/25 04/02/25 History Exam Const General: cooperative, comfortable and no acute distress Orientation: alert, awake and oriented x3 HENMT Head: normal to inspection Eyes General: appearance normal, both eyes and all related structures Neck Neck: normal visual inspection, full ROM and no lymphadenopathy Cardio Jugular venous pressure: no JVD Rate: regular rate Rhythm: regular rhythm Heart Sounds: S1 normal and S2 normal GI Palpation: soft Other: Left-sided perirectal tenderness and erythema. Extrem Right lower extremity: no edema Left lower extremity: no edema Results Imaging CT scan - pelvis: report reviewed and image reviewed Labs 04/02/25 09:00 04/02/25 09:00 Labs: Laboratory Results - last 24 hr 04/02/25 04/02/25 09:00 09:51 WBC 23.06 H RBC 4.49 Hgb 14.0 Hct 40.9 MCV 91 MCH 31.2 MCHC 34.2 RDW 11.8 Plt Count 365 MPV 9.3 Immature Gran % 1.1 Neutrophils % 87.1 Lymphocytes % 4.0 Monocytes % 7.5 Eosinophils % 0.0 Basophils % 0.3 Nucleated RBC % 0.0 Absolute Neutrophils 20.09 H Absolute Lymphocytes 0.92 L Absolute Monocytes 1.73 H Absolute Eosinophils 0.00 Absolute Basophils 0.07 RBC Morphology Normal VBG Lactate 1.4 Sodium 131 L Potassium 3.4 L Chloride 93 L Carbon Dioxide 29.1 Anion Gap 8.9 BUN 40 H Creatinine 2.1 H Est GFR (CKD-EPI 2020) 34.72 Glucose 136 H Calcium 9.3 Magnesium 1.4 L Total Bilirubin 1.2 H AST 13 L ALT 13 L Alkaline Phosphatase 74 Total Protein 7.9 Albumin 3.2 L Last Vital Signs Temp 99.4 F 04/02/25 07:51 Pulse 100 H 04/02/25 07:51 Resp 16 04/02/25 07:51 BP 105/44 L 04/02/25 07:51 Pulse Ox 98 04/02/25 07:51
[2025-04-02] MEDS: MORPHine 4 MG/ML SYR IVP (11:47)
--- NOTE | 2025-04-02 11:48 | ANES.PREOP_ITS ---
General Info Date of Service Date Performed: 04/02/25 Height: 5 ft 7 in Weight: 88.904 kg Body Mass Index (BMI): 30.7 Surgical Procedure: Operation Date: 04/02/25 13:55 Proposed Procedure Side Surgeon p Excision-Shelby Rectal Abscess, pamotomy Silviano Jones MD Actual Procedure Side Surgeon p Excision-Shelby Rectal Abscess, lithotomy Silviano Jones MD Pre-Op Diagnosis Post-Op Diagnosis shelby-rectal abscess Meds Allergies and Home Medications Allergies Allergy/AdvReac Type Severity Reaction Status Date / Time lactose AdvReac intolerant Verified 04/02/25 07:57 Home Medication ?Medication ?Instructions ?Recorded cholecalciferol (vitamin D3) 125 5,000 unit PO DAILY 07/25/19 mcg (5,000 unit) tablet (Vitamin D3) folic acid 1 mg tablet 1 mg PO DAILY 07/25/19 cyanocobalamin (vitamin B-12) 1,000 mcg PO DAILY 11/29/19 1,000 mcg capsule atorvastatin 40 mg tablet 40 mg PO DAILY 04/07/24 gabapentin 300 mg capsule 1,200 mg PO QHS 04/07/24 (Neurontin) losartan 100 mg tablet (Cozaar) 100 mg PO DAILY 04/07/24 chlorthalidone 25 mg tablet 25 mg PO DAILY 04/02/25 Current Visit Medications: Current Medications Generic Name Dose Route Start Last Admin Trade Name Freq PRN Reason Stop Dose Admin Magnesium Sulfate 2 gm in 50 mls @ 25 mls/hr 04/02/25 10:00 04/02/25 10:59 IV_INF 04/02/25 11:59 25 mls/hr NOW ONE Administration IV Miscellaneous Supplies 1 each 04/02/25 08:30 Iv Access-Emergency Dept IV DIRECTED SALLY Sodium Chloride 0 ml 04/02/25 08:26 Normal Saline Flush 10 Ml Syr IVP PRN PRN Sodium Chloride 0 ml 04/02/25 08:30 Normal Saline Flush 10 Ml Syr IVP BID SALLY Sodium Chloride 0 ml 04/02/25 08:26 Normal Saline 10 Ml Vial IJ DIRECTED PRN PFSH Active Problems Active Problems: Problem Status Onset Code Perirectal abscess Acute K61.1 Obesity Chronic E66.9 Uncontrolled hypertension Acute I10 History of prior cigarette smoking Acute Z87.891 Alcohol abuse Chronic F10.10 Fracture of distal end of fibula Acute 09/30/19 S82.839A Tobacco Smoking/Tobacco Use Status: Former Tobacco Use Alcohol Alcohol Intake: former Substance Use Substance use: Occasionally Substance use type: marijuana Vital Signs and Lab Results Vital Signs Most Recent Vital Signs in EMR: Most Recent Vital Signs Temp Pulse Resp BP Pulse Ox 37.4 C 100 H 16 105/44 L 98 04/02/25 07:51 04/02/25 07:51 04/02/25 07:51 04/02/25 07:51 04/02/25 07:51 Lab Results 04/02/25 09:00 04/02/25 09:00 Blood Type / Crossmatch: 2 No Data to Display Complete Blood Count: 2 White Blood Count 23.06 10^3/uL (4.4-10.8) H 04/02/25 09:00 Red Blood Count 4.49 10^6/uL (4.36-5.78) 04/02/25 09:00 Hemoglobin 14.0 g/dL (13.5-17.5) 04/02/25 09:00 Hematocrit 40.9 % (40.0-50.0) 04/02/25 09:00 Platelet Count 365 10^3/uL (130-400) 04/02/25 09:00 Venous Blood Lactate 1.4 mmol/L (<or=2.0) 04/02/25 09:51 Complete Metabolic Panel: 2 Sodium 131 mmol/L (136-145) L 04/02/25 09:00 Potassium 3.4 mmol/L (3.5-5.1) L 04/02/25 09:00 Chloride 93 mmol/L (98-107) L 04/02/25 09:00 Carbon Dioxide 29.1 mmol/L (21.0-32.0) 04/02/25 09:00 BUN 40 mg/dL (7-18) H 04/02/25 09:00 Creatinine 2.1 mg/dL (0.70-1.30) H 04/02/25 09:00 Est GFR (CKD-EPI 2020) 34.72 (mL/min/1.73m2) 04/02/25 09:00 Magnesium 1.4 mg/dL (1.8-2.4) L 04/02/25 09:00 Calcium 9.3 mg/dL (8.5-10.1) 04/02/25 09:00 Albumin 3.2 g/dL (3.4-5.0) L 04/02/25 09:00 Glucose 136 mg/dL (74-106) H 04/02/25 09:00 Liver Function Panel: 2 Alanine Aminotransferase (ALT/SGPT) 13 U/L (16-63) L 04/02/25 0 9:00 Aspartate Amino Transf (AST/SGOT) 13 U/L (15-37) L 04/02/25 09: 00 Coagulation Panel: 2 No Data to Display Cardiac Panel: 2 No Data to Display Arterial Blood Gas: 2 No Data to Display Venous Blood Gas: 2 No Data to Display Pancreas Panel: 2 No Data to Display Thyroid Panel: 2 No Data to Display Infectious Disease: 2 No Data to Display Blood Cultures: 2 No Data to Display Toxicology Panel: 2 No Data to Display Imaging and Studies Imaging and Studies Study information below may be from another EMR and interpreted by another provider. Please see original notes in EMR for more complete details. EKG Summary: 04/02/25: Exam: Resting ECG Reason for Exam: syncope Patient Location: E HR:96 bpm ECG Measurements Heart Rate 96 AXIS ID 147 P 61 QRSd 76 QRS 54 QT 332 T8 QTc 421 Conclusion Sinus rhythm 96 normal axis bigeminy no stemi Anesthesia Assessment and Plan Anesthesia History Personal History: No History of Anesthesia Complications Family History: No Family History of Anesthesia Complications Exercise Tolerance Exercise Tolerance: Metabolic Equivalents>4 Pertinent Negatives Pertinent Negatives: No Symptoms of GERD, No Major Cardiovascular Symptoms or Complaints and No Major Pulmonary Symptoms or Complaints Cardiac & Pulmonary Exam Cardiac Exam: Normal S1/S2 Heart Sounds Pulmonary Exam: Clear Bilateral Breath Sounds Implantable Cardiac Device Does patient have a Pacemaker or an ICD?: No Airway Exam Known Difficult Airway: No Mallampati Class: 2 Mouth Opening: Normal (> 3cm) Thyromental Distance: Greater than 3 cm Neck Range of Motion: Full ROM Neck Circumference: Normal Teeth Condition: Generalized Poor Dentition ASA Classification ASA Score: ASA 3 Emergency Case?: No NPO Status NPO Status: NPO Clears >2 hours, Solids >8 hours Anesthesia Plan Resuscitation Status: Full Code Anesthesia Technique: General Anesthesia Airway Planned: Endotracheal Tube Monitors Used: Standard Monitors and SedLine
[2025-04-02] MEDS: ACETAMINOPHEN 1,000 MG/100 ML BTL 100 MG (12:00)
[2025-04-02 12:41] LABS: Bilirubin Negative (Negative); Blood Trace-intact (Negative); Clarity Clear (Clear); Glucose Negative (Negative); Ketones Negative (Negative); Leukocyte Esterase Negative (Negative); Nitrite Negative (Negative); Urobilinogen 0.2 mg/dL (Up to 0.2); pH 5.5 (5-8)
[2025-04-02 12:48] LABS: Bacteria Negative HPF (Negative); C & S Indicated? No; Casts 0-2 Hyaline LPF (Negative); Crystals Negative HPF (Negative); Epithelial Cells Rare HPF (Negative); Mucus Negative (Negative); RBC 0-2 HPF (0-2); WBC Negative HPF (0-5)
--- NOTE | 2025-04-02 12:53 | W.PC.ACHO ---
Registration Status: Primary Language: Preferred Language: ED Information & Data Chief Complaint GenMedical 04/02/25 08:38 Triage Note Over the last week Pt has 04/02/25 07:48 had trouble controlling bowels. Pt states it's when he's lying still or moving. Pt states it all started with a hemorrhoid that blew up Most Recent Vital Signs Temperature 37.4 C 04/02/25 07:51 Temperature Source Oral 04/02/25 07:51 Pulse 90 04/02/25 12:47 Pulse 98 H 04/02/25 12:47 Respiratory Rate 20 04/02/25 12:47 Respiratory Effort Normal, Non-Labored 04/02/25 07:51 Respiratory Depth Normal 04/02/25 07:51 Respiratory Pattern Normal 04/02/25 07:51 Blood Pressure 107/59 L 04/02/25 12:47 Blood Pressure Mean 73 04/02/25 12:47 Blood Pressure Position Supine 04/02/25 07:51 Pulse Oximetry 94 04/02/25 12:47 Oxygen Delivery Method Room Air 04/02/25 07:51 Oxygen Flow Rate 0 04/02/25 07:48 Pain Level 4 04/02/25 07:51 Comment pain is located in anus 04/02/25 07:51 Allergies lactose Adverse Reaction (Verified 04/02/25 07:57) intolerant Precautions Isolation Standard precaution 04/02/25 07:51 IV IV Catheter Type [Right Peripheral IV Antecubital] IV Catheter Gauge [Right 18 Antecubital] Diagnostics 04/02/25 04/02/25 04/02/25 Range/Units 12:33 09:51 09:00 WBC 23.06 H (4.4-10.8) 10^3/uL RBC 4.49 (4.36-5.78) 10^6/uL Hgb 14.0 (13.5-17.5) g/dL Hct 40.9 (40.0-50.0) % MCV 91 (80-95) fL MCH 31.2 (27.0-33.0) pg MCHC 34.2 (32.0-36.0) % RDW 11.8 (11.8-14.1) % Plt Count 365 (130-400) 10^3/uL MPV 9.3 (8.0-11.0) fL Immature Gran % 1.1 % Neutrophils % 87.1 % Lymphocytes % 4.0 % Monocytes % 7.5 % Eosinophils % 0.0 % Basophils % 0.3 % Nucleated RBC % 0.0 (0.0-0.3) % Absolute Neutrophils 20.09 H (1.2-6.7) 10^3/uL Absolute Lymphocytes 0.92 L (1.2-3.4) 10^3/uL Absolute Monocytes 1.73 H (0.1-0.8) 10^3/uL Absolute Eosinophils 0.00 (0.0-0.7) 10^3/uL Absolute Basophils 0.07 (0.0-0.2) 10^3/uL RBC Morphology Normal VBG Lactate 1.4 (<or=2.0) mmol/L Sodium 131 L (136-145) mmol/L Potassium 3.4 L (3.5-5.1) mmol/L Chloride 93 L (98-107) mmol/L Carbon Dioxide 29.1 (21.0-32.0) mmol/L Anion Gap 8.9 (3-11) mmol/L BUN 40 H (7-18) mg/dL Creatinine 2.1 H (0.70-1.30) mg/dL Est GFR (CKD-EPI 2020) 34.72 (mL/min/1.73m2) Glucose 136 H (74-106) mg/dL Calcium 9.3 (8.5-10.1) mg/dL Magnesium 1.4 L (1.8-2.4) mg/dL Total Bilirubin 1.2 H (0.2-1.0) mg/dL AST 13 L (15-37) U/L ALT 13 L (16-63) U/L Alkaline Phosphatase 74 (46-116) U/L Total Protein 7.9 (6.4-8.2) g/dL Albumin 3.2 L (3.4-5.0) g/dL Urine Color Yellow (Yellow) Urine Clarity Clear (Clear) Urine pH 5.5 (5-8) Ur Specific [place] 1.020 (1.005-1.025) Urine Protein 30 H (Neg-Trace) mg/dL Urine Ketones Negative (Negative) mg/dL Urine Blood Trace-intact H (Negative) Urine Nitrite Negative (Negative) Urine Bilirubin Negative (Negative) Urine Urobilinogen 0.2 (Up to 0.2) mg/dL Ur Leukocyte Esterase Negative (Negative) Urine RBC 0-2 (0-2) HPF Urine WBC Negative (0-5) HPF Ur Epithelial Cells Rare (Negative) HPF Urine Crystals Negative (Negative) HPF Urine Bacteria Negative (Negative) HPF Urine Casts 0-2 Hyaline (Negative) LPF Urine Mucus Negative (Negative) Ur Culture Indicated? No Urine Glucose Negative (Negative) mg/dL 04/02/25 09:51 Blood Culture - Pending Blood 04/02/25 09:28 Blood Culture - Pending Blood Intake and Output - 24 Hour Total 04/02/25 07:43 thru 04/02/25 11:50 Intake Total 1583.333 Balance 1583.333 Weight 88.904 kg Intake: IV 1583.333 Falls Risk Assessment History of Falls No History 04/02/25 07:51 Fall Total Score 0 04/02/25 07:51 Level of Risk Standard/Low Risk 04/02/25 07:51 Problems (Last Reviewed 04/02/25 @ 11:31 by Silviano Jones MD) Perirectal abscess (Acute) v v v v v v v v v Sending and/or Receiving Nurses: Please use comment section below to note any information pertinent to the patient hand-off not included above. Information / Comments: paged at [phone], report called at [phone] G R AC. Abscess on left buttocks, pending OR for harjeet/drainage. Report received from: Mali Nielsen ED Nurse
[2025-04-02] MEDS: Lactated Ringers 1,000 ML 30 ML IV (14:30)
--- NOTE | 2025-04-02 15:10 | BOWEL_PTH ---
PATIENT: Selvin Haskins LOC: U#:[id number] AGE/SX: 65/M ROOM: 214 RE04/02/[address]: Silviano Jones MD : 1960 BED: A DIS: 04/05/2025 SPEC #: [id number] RECD: 04/02/25 17:53 STATUS: SOUMeagan REQ #: [id number] BARTOLOME: 04/02/25 15:[address]: Silviano Jones DEPT: Surgical Specimen RECD BY: Maryjo Quintana ENTERED: 04/02/25 17:56 SP TYPE: Bowel OTHR DR: Renita Vargas Tissues: 1 - BIOPSY BOWEL Procedures: GROSS AND MICRO LEVEL 3 Comments: [id number]
[2025-04-02] MEDS: Bupivacaine 0.25% Pres-Free 30 ML VIAL (15:15)
[2025-04-02] MEDS: Bupivacaine LIPOSOME/PF 133 MG/10 ML VIAL IJ (15:15)
--- NOTE | 2025-04-02 15:33 | ROE_ITS ---
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 General endotracheal anesthesia was induced. Next, he was placed in the lithotomy positioning. Great care was taken to ensure that he was padded and supported appropriate. Perineum was then prepped and draped. External anorectal exam was significant for induration and fluctuance along the left gluteus and perianal space. Digital rectal exam was most significant for a mass arising from the posterior left side. There was also a defect in the posterior wall of the anal column. It is difficult to decipher where this is in relation to the sphincter complex. The tissue is quite indurated and inflamed. Foul- smelling pus drains from this posterior defect. I am able to prolapse the mass, which is about 1 cm long. 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 The fistulous track is arising immediately adjacent to this. In an effort to fully drain the abscess, and gain better exposure, I then anesthetized the skin several centimeters away along the indurated and fluctuant left perianal space. I made a cruciate incision, and dissected into the subcutaneous fat. There was immediate drainage of large amount of foul-smelling purulent fluid. Specimens were obtained for Gram stain and culture. There were some loculations that were easily divided with the finger. This abscess cavity extends up into the ischial rectal fossa beyond the length of my finger. There is another lumen that tracks posterior into the presacral space. This was irrigated with sterile saline solution. A lap pad was packed into the space, and I turned my attention back to the anorectal exam. In an effort to better visualize the defect, I did excise the anal mass with the LigaSure. This was passed off as a permanent specimen. Again, it was little difficult to decipher the tissue because of the inflammation and ongoing drainage through the posterior midline defect. At this point, with the abscess drained, I felt like packing the wound was probably the safest course of action. Therefore, I removed the laparotomy pad, and irrigated the cavity with the remainder of 3 L of saline. Sterile Kerlix was then packed into the wound. This was cut to length, and dressed with an ABD pad prior to application of mesh underpants as the patient was brought back to the supine position. Humberto was then extubated, and transferred to the recovery unit. Date of Procedure: 04/02/25
--- NOTE | 2025-04-02 15:46 | W.ANESPOSTOP ---
Postoperative Evaluation Date, Time and Location Date Performed: 04/02/25 Time Performed: 15:46 Patient Location: PACU Vital Signs Most Recent Imported Vital Signs: Most Recent Vital Signs Temp Pulse Resp BP Pulse Ox 37.0 C 90 20 107/59 L 94 04/02/25 15:30 04/02/25 12:47 04/02/25 12:47 04/02/25 12:47 04/02/25 12:47 Pain Score Most Recent Pain Score: Most Recent Pain Score Pain Level 0 04/02/25 15:30 Assessment Mental Status: Awake (Alert & Oriented to Patient Baseline) Airway and Respiratory Function: Patent airway with normal (patient baseline) respiratory exam Cardiovascular Function: Hemodynamically Stable Hydration Status: Adequately Hydrated Nausea & Vomiting: No Nausea or Vomiting Pain: Pt. Denies Any Pain Peripheral Nerve Block: Patient did not receive a nerve block
--- NOTE | 2025-04-02 16:00 | DI.RAD_ITS ---
Exam(s) XR CHEST 2V PA LATERAL EXAM: XR CHEST 2V PA LATERAL CLINICAL HISTORY: r/o pneumonia. TECHNIQUE: 2D digital imaging was performed. COMPARISON: CT CT ABDOMEN PELVIS WO from 04/02/2025 FINDINGS: 2 views: Heart size is normal. The mediastinum is not widened. Lungs are clear. No infiltrates nor pleural effusions. IMPRESSION: No acute pulmonary findings. DATA REPOSITORY: RADIATION DOSE DELIVERED:
[2025-04-02] MEDS: HYDROmorphone 2 MG/ML SYR 1 MG IVP (18:42)
[2025-04-02] MEDS: Heparin 5,000 UNITS/ML VIAL 5000 UNITS SC (18:42)
[2025-04-02] MEDS: ACETAMINOPHEN 1,000 MG/100 ML BTL 400 MG IVPB (20:15)
[2025-04-02] MEDS: Lactated Ringers 1,000 ML 75 ML IV (20:16)
[2025-04-02] MEDS: Normal Saline Flush 10 ML SYR ×2 (20:16→20:24)
[2025-04-03] VITALS (24 sets, daily range): BP systolic 101–157; BP diastolic 61–92; PULSE 55–78; RESP 16–29; TEMP 36–37; O2SAT 94–99; BMI 30.7
[2025-04-03] MEDS: PIPERACILLIN/TAZO 3.375 GM in Normal Saline 50 ML IVPB ×3 (00:33→17:04)
[2025-04-03] MEDS: ACETAMINOPHEN 1,000 MG/100 ML BTL 400 MG IVPB ×3 (04:44→19:56)
[2025-04-03] MEDS: Heparin 5,000 UNITS/ML VIAL 5000 UNITS SC ×2 (06:12→18:06)
[2025-04-03 07:01] LABS: HCT 35.4 % (40.0-50.0); HGB 11.8 g/dL (13.5-17.5); MCH 30.9 pg (27.0-33.0); MCHC 33.3 % (32.0-36.0); MCV 93 fL (80-95); MPV 9.7 fL (8.0-11.0); Platelet Count 350 10^3/uL (130-400); RBC 3.82 10^6/uL (4.36-5.78); RDW 11.9 % (11.8-14.1); WBC 22.29 10^3/uL (4.4-10.8)
[2025-04-03 07:13] LABS: Anion Gap 5.2 mmol/L (3-11); BUN 29 mg/dL (7-18); CO2 29.8 mmol/L (21.0-32.0); CREATININE 1.6 mg/dL (0.70-1.30); Calcium 8.9 mg/dL (8.5-10.1); Chloride 97 mmol/L (98-107); Estimated GFR 48.11 (mL/min/1.73m2); Glucose 143 mg/dL (74-106); Potassium 4.3 mmol/L (3.5-5.1); Sodium 132 mmol/L (136-145)
--- NOTE | 2025-04-03 07:18 | PGE_ITS ---
Date of Service Date of service: 04/03/25 Time of Service: 07:18 Assessment and Plan Assessment and plan (1) Perirectal abscess: Status: Acute Assessment and plan: Overall, Humberto looks quite well this morning, but his white blood cell count is still quite elevated. Serum creatinine is not resulted yet, but I am optimistic that this will be improving with the crystalloid resuscitation. So far, the Gram stain on the abscess is a gram-negative navid. Hopefully the Zosyn will have that covered. I washed the wound out again today, and reassess. I explained to Humberto once again given the complexity, size of this abscess, and the defect in the anal wall, I do think that this might require proximal diversion with a loop colostomy to heal. Will see how things look today, and reassess the white blood cell count over the next 24 hours and adjust as needed. Subjective Subjective Interval history since last seen: Humberto says he felt okay through the night time. He was able to tolerate dinner without any nausea or vomiting. He has not had any bowel movements since yesterday. Exam GI Other: Abdomen is soft and nondistended. Bandages are stained with blood and slightly purulent fluid Objective Last Vital Signs Temp 98.2 F 04/02/25 18:49 Pulse 82 04/02/25 18:49 Resp 19 04/02/25 18:49 BP 115/74 04/02/25 18:49 Pulse Ox 96 04/02/25 18:49 Laboratory Results - last 24 hr 04/02/25 04/02/25 04/02/25 09:00 09:51 12:33 WBC 23.06 H RBC 4.49 Hgb 14.0 Hct 40.9 MCV 91 MCH 31.2 MCHC 34.2 RDW 11.8 Plt Count 365 MPV 9.3 Immature Gran % 1.1 Neutrophils % 87.1 Lymphocytes % 4.0 Monocytes % 7.5 Eosinophils % 0.0 Basophils % 0.3 Nucleated RBC % 0.0 Absolute Neutrophils 20.09 H Absolute Lymphocytes 0.92 L Absolute Monocytes 1.73 H Absolute Eosinophils 0.00 Absolute Basophils 0.07 RBC Morphology Normal VBG Lactate 1.4 Sodium 131 L Potassium 3.4 L Chloride 93 L Carbon Dioxide 29.1 Anion Gap 8.9 BUN 40 H Creatinine 2.1 H Est GFR (CKD-EPI 2020) 34.72 Glucose 136 H Calcium 9.3 Magnesium 1.4 L Total Bilirubin 1.2 H AST 13 L ALT 13 L Alkaline Phosphatase 74 Total Protein 7.9 Albumin 3.2 L Urine Color Yellow Urine Clarity Clear Urine pH 5.5 Ur Specific [place] 1.020 Urine Protein 30 H Urine Ketones Negative Urine Blood Trace-intact H Urine Nitrite Negative Urine Bilirubin Negative Urine Urobilinogen 0.2 Ur Leukocyte Esterase Negative Urine RBC 0-2 Urine WBC Negative Ur Epithelial Cells Rare Urine Crystals Negative Urine Bacteria Negative Urine Casts 0-2 Hyaline Urine Mucus Negative Ur Culture Indicated? No Urine Glucose Negative 04/03/25 06:19 WBC 22.29 H RBC 3.82 L Hgb 11.8 L D Hct 35.4 L MCV 93 MCH 30.9 MCHC 33.3 RDW 11.9 Plt Count 350 MPV 9.7 Immature Gran % Neutrophils % Lymphocytes % Monocytes % Eosinophils % Basophils % Nucleated RBC % Absolute Neutrophils Absolute Lymphocytes Absolute Monocytes Absolute Eosinophils Absolute Basophils RBC Morphology VBG Lactate Sodium Potassium Chloride Carbon Dioxide Anion Gap BUN Creatinine Est GFR (CKD-EPI 2020) Glucose Calcium Magnesium Total Bilirubin AST ALT Alkaline Phosphatase Total Protein Albumin Urine Color Urine Clarity Urine pH Ur Specific [place] Urine Protein Urine Ketones Urine Blood Urine Nitrite Urine Bilirubin Urine Urobilinogen Ur Leukocyte Esterase Urine RBC Urine WBC Ur Epithelial Cells Urine Crystals Urine Bacteria Urine Casts Urine Mucus Ur Culture Indicated? Urine Glucose Time Spent with Patient Time Spent with Patient: 25-34 minutes Time was spent: preparing to see the patient(eg.review tests), indepentently interpreting results and counseling the patient
[2025-04-03] MEDS: Cholecalciferol (Vitamin D3) 1,000 UNIT TAB 5000 UNITS PO (08:19)
[2025-04-03] MEDS: Atorvastatin 40 MG TAB PO (08:19)
[2025-04-03] MEDS: Folic Acid 1 MG TAB PO (08:19)
[2025-04-03] MEDS: Cyanocobalamin 500 MCG TAB 1000 MCG PO (08:19)
[2025-04-03] MEDS: Chlorthalidone 25 MG TAB PO (08:19)
--- NOTE | 2025-04-03 09:16 | INITIAL_ITS ---
Date of service: 04/03/25 Time of Service: 09:16 Care Management Initial Assmt Initial Assessment Reason for Hospitalization: Perirectal Abcess Functional Status/Living Situation Patient Presentation: Selvin was lying in bed when CM met with him. He presented to the ED with the chief complaint of diarrhea, fecal incontinence, hemorrhoids, syncope, which was described as severe. Selvin lives in a single family home with his mother, in [place] and has since 2018 (previously in [place]). Per Selvin, he has other family in [place], and he doesn't see them much. Selvin stated, he doesn't have any natural supports, other than his mom. He is associated with the [place] and is service connected, utilizing the [facility] and [place] locations. CM will continue to follow. Town of Residence: [place] Resides with: Parent (mother - Eddie) Significant Other/Family: Out of area (1 sister in [place] and 1 sister in [place]) Natural Supports: Mother Employment Status: Disabled (Per Selvin, he is disabled by 10%) Instrumental Activities of Daily Living (ADLs): Independent Medications Medication Management: No Issues/Barriers identified Advance Directives Advance Directives: Do you have an Advance Directive: N 12/25/24 11:23 AD On File at [facility]: N 12/25/24 11:23 Date Asked 12/27/24 01/03/25 09:04 AD Date Reviewed 04/02/25 04/02/25 12:54 COLST On File at [facility] COLST Date Scanned Code Status Resuscitation Status Full Code Portal Pt does not currently have a portal and education provided: Yes Insurance Coverage/Financial Issues Insurance: [place] Financial Issues: pt states that there are no financial issues at this time Care Team Visit Care Team Role Provider Type Renita Vargas Primary Care Provider NON-[facility] STAFF PHYSICIAN IAN Rinaldi Emergency Provider [employer] RE[employer] Silviano Jones MD Admit Provider [facility] STAFF PHYSICIAN Attending Provider Discharge Potential Discharge Needs: PCP F/U Appt and Surgical F/U Appt Anticipated Barriers to Discharge: None Identified Patient/Family Education Needs: Review discharge instructions, discuss Ask Me Three Transportation: Private vehicle (Eddie will transport) Plan: Anticipate Selvin will be discharged home once medically ready. He will follow up with his community providers, surgical team, and continue per his discharge plan of care. Selvin will transport via private vehicle by his mother. CM will continue to follow. Social Determinants of Health Screening Social Determinants of health last assessed in clinic: 04/03/25 Will the Patient Participate in the Screening?: Yes Do you worry about having a steady place to live?: no Problems where you live: no known problems In the past 12 months, have you had to go without electric, gas, oil or water in your home?: no 1. Within the past 12 months, we worried whether our food would run out before we got money to buy more.: Never true 2. Within the past 12 months, the food we bought just didn't last and we didn't have money to get more.: Never true Has lack of transportation kept you from medical appointments or from doing th ings needed for daily living?: no Has anyone in your life made you feel unsafe or unsupported?: no How hard is it for you to pay for the very basics like food, housing, medical care, and heating? Would you say it is:: Not hard at all Do you want help finding or keeping work or a job?: I do not need or want help If for any reason you need help with day-to-day activities such as bathing, preparing meals, shopping, managing finances, etc., do you get the help you need?: I don?t need any help How often do you feel lonely or isolated from those around you?: Never Do you speak a language other than Cym[place] at home?: Yes Does the patient want assistance with any of the above?: No Health Related Social Needs Health related social needs: education (Z55.6) Health related social needs details: Speaks [place] at home. PFSH All Active Problems (Updated 04/02/25 @ 15:34 by IAN Rinaldi) Perirectal abscess (Acute) Obesity (Chronic) Uncontrolled hypertension (Acute) History of prior cigarette smoking (Acute) Alcohol abuse (Chronic) Fracture of distal end of fibula (Acute 09/30/19) Social History Smoking/Tobacco Use Status: Former Tobacco Use Smoking risk assessment performed?: Yes Alcohol Intake: former Drug use: Occasionally Substance use type: marijuana Housing: house Current gender identity: male Do you feel safe at home: Yes Do you feel safe in your relationship?: Yes
--- NOTE | 2025-04-03 14:07 | ANES.PREOP_ITS ---
General Info Date of Service Date Performed: 04/03/25 Height: 5 ft 7 in Weight: 88.904 kg Body Mass Index (BMI): 30.7 Surgical Procedure: Operation Date: 04/02/25 13:55 Proposed Procedure Side Surgeon p Excision-Anisha Rectal Abscess, lithotomy Silviano Jones MD Actual Procedure Side Surgeon p Excision-Anisha Rectal Abscess Not Applicable Silviano Jones MD Pre-Op Diagnosis Post-Op Diagnosis anisha-rectal abscess anisha-rectal abscess Operation Date: 04/03/25 11:40 Proposed Procedure Side Surgeon p Excision-Anisha Rectal Abscess Silviano Jones MD Meds Allergies and Home Medications Allergies Allergy/AdvReac Type Severity Reaction Status Date / Time lactose AdvReac intolerant Verified 04/02/25 07:57 Home Medication ?Medication ?Instructions ?Recorded cholecalciferol (vitamin D3) 125 5,000 unit PO DAILY 07/25/19 mcg (5,000 unit) tablet (Vitamin D3) folic acid 1 mg tablet 1 mg PO DAILY 07/25/19 cyanocobalamin (vitamin B-12) 1,000 mcg PO DAILY 11/29/19 1,000 mcg capsule atorvastatin 40 mg tablet 40 mg PO DAILY 04/07/24 gabapentin 300 mg capsule 1,200 mg PO QHS 04/07/24 (Neurontin) losartan 100 mg tablet (Cozaar) 100 mg PO DAILY 04/07/24 chlorthalidone 25 mg tablet 25 mg PO DAILY 04/02/25 Current Visit Medications: Current Medications Generic Name Dose Route Start Last Admin Trade Name Freq PRN Reason Stop Dose Admin Albuterol Sulfate 2 puff 04/02/25 16:59 Albuterol Hfa 8.5 Gm 200 Puff Inh IH Q4H PRN PRN Wheezing, Shortness of Breath Atorvastatin Calcium 40 mg 04/03/25 08:30 04/03/25 08:19 Atorvastatin 40 Mg Tab PO 40 mg DAILY SALLY Administration Chlorthalidone 25 mg 04/03/25 08:30 04/03/25 08:19 Chlorthalidone 25 Mg Tab PO 25 mg DAILY SALLY Administration Cholecalciferol 5,000 units 04/03/25 08:30 04/03/25 08:19 Cholecalciferol (Vitamin D3) 1,000 Unit Tab PO 5,000 units DAILY SALLY Administration Cyanocobalamin 1,000 mcg 04/03/25 08:30 04/03/25 08:19 Cyanocobalamin 500 Mcg Tab PO 1,000 mcg DAILY SALLY Administration Ephedrine Sulfate 0 mg 04/02/25 18:40 Ephedrine 25 Mg/5 Ml Syringe IVP DIRECTED PRN Folic Acid 1 mg 04/03/25 08:30 04/03/25 08:19 Folic Acid 1 Mg Tab PO 1 mg DAILY SALLY Administration Heparin Sodium (Porcine) 5,000 units 04/02/25 18:00 04/03/25 06:12 Heparin 5,000 Units/Ml Vial SC 5,000 units Q12H SALLY Administration Hydromorphone HCl 1 mg 04/02/25 16:10 04/02/25 18:42 Hydromorphone 2 Mg/Ml Syr IVP 1 mg Q3H PRN PRN Administration Acetaminophen 1,000 mg in 100 mls @ 400 mls/hr 04/02/25 20:00 04/03/25 12:45 Ofirmev IVPB 400 mls/hr Q8H [facility] Administration Piperacillin Sod/Tazobactam 50 mls @ 12.5 mls/hr 04/02/25 16:00 04/03/25 12:44 Sod 3.375 gm/ Sodium Chloride IVPB Infused Q8H [facility] Infusion Ringer's Solution 1,000 mls @ 75 mls/hr 04/02/25 16:10 04/03/25 12:44 IV 75 mls/hr INFUSION [facility] Infusion IV Miscellaneous Supplies 1 each 04/02/25 13:41 Iv Access IV DIRECTED [facility] Losartan Potassium 100 mg 04/03/25 08:30 04/03/25 07:35 Losartan 50 Mg Tab PO Not Given DAILY SALLY Naloxone HCl 0 mg 04/02/25 18:40 Naloxone 0.4 Mg/Ml Vial IVP PRN PRN Ondansetron HCl 4 mg 04/02/25 13:41 Ondansetron 4 Mg/2 Ml Vial IVP Q4H PRN PRN Polyethylene Glycol 17 gm 04/02/25 20:00 04/03/25 08:21 Polyethylene Glycol 3350 17 Gm Packet PO Not Given BID SALLY PFSH Active Problems Active Problems: Problem Status Onset Code Perirectal abscess Acute K61.1 Obesity Chronic E66.9 Uncontrolled hypertension Acute I10 History of prior cigarette smoking Acute Z87.891 Alcohol abuse Chronic F10.10 Fracture of distal end of fibula Acute 09/30/19 [id number] Tobacco Smoking/Tobacco Use Status: Former Tobacco Use Alcohol Alcohol Intake: former Substance Use Substance use: Occasionally Substance use type: marijuana Vital Signs and Lab Results Vital Signs Most Recent Vital Signs in EMR: Most Recent Vital Signs Temp Pulse Resp BP Pulse Ox 36.8 C 59 L 18 101/68 97 04/03/25 07:36 04/03/25 07:36 04/03/25 07:36 04/03/25 07:36 04/03/25 07:36 Lab Results 04/03/25 06:19 04/03/25 06:19 Blood Type / Crossmatch: 2 No Data to Display Complete Blood Count: 2 White Blood Count 22.29 10^3/uL (4.4-10.8) H 04/03/25 06:19 Red Blood Count 3.82 10^6/uL (4.36-5.78) L 04/03/25 06:19 Hemoglobin 11.8 g/dL (13.5-17.5) L 04/03/25 06:19 Hematocrit 35.4 % (40.0-50.0) L 04/03/25 06:19 Platelet Count 350 10^3/uL (130-400) 04/03/25 06:19 Venous Blood Lactate 1.4 mmol/L (<or=2.0) 04/02/25 09:51 Complete Metabolic Panel: 2 Sodium 132 mmol/L (136-145) L 04/03/25 06:19 Potassium 4.3 mmol/L (3.5-5.1) 04/03/25 06:19 Chloride 97 mmol/L (98-107) L 04/03/25 06:19 Carbon Dioxide 29.8 mmol/L (21.0-32.0) 04/03/25 06:19 BUN 29 mg/dL (7-18) H 04/03/25 06:19 Creatinine 1.6 mg/dL (0.70-1.30) H 04/03/25 06:19 Est GFR (CKD-EPI 2020) 48.11 (mL/min/1.73m2) 04/03/25 06:19 Magnesium 1.4 mg/dL (1.8-2.4) L 04/02/25 09:00 Calcium 8.9 mg/dL (8.5-10.1) 04/03/25 06:19 Albumin 3.2 g/dL (3.4-5.0) L 04/02/25 09:00 Glucose 143 mg/dL (74-106) H 04/03/25 06:19 Liver Function Panel: 2 Alanine Aminotransferase (ALT/SGPT) 13 U/L (16-63) L 04/02/25 0 9:00 Aspartate Amino Transf (AST/SGOT) 13 U/L (15-37) L 04/02/25 09: 00 Coagulation Panel: 2 No Data to Display Cardiac Panel: 2 No Data to Display Arterial Blood Gas: 2 No Data to Display Venous Blood Gas: 2 No Data to Display Pancreas Panel: 2 No Data to Display Thyroid Panel: 2 No Data to Display Infectious Disease: 2 No Data to Display Blood Cultures: 2 No Data to Display Toxicology Panel: 2 No Data to Display Imaging and Studies Imaging and Studies Study information below may be from another EMR and interpreted by another provider. Please see original notes in EMR for more complete details. EKG Summary: 04/02/25: Exam: Resting ECG Reason for Exam: syncope Patient Location: E HR:96 bpm ECG Measurements Heart Rate 96 AXIS MD 147 P 61 QRSd 76 QRS 54 QT 332 T8 QTc 421 Conclusion Sinus rhythm 96 normal axis bigeminy no stemi Anesthesia Assessment and Plan Anesthesia History Personal History: No History of Anesthesia Complications Family History: No Family History of Anesthesia Complications Exercise Tolerance Exercise Tolerance: Metabolic Equivalents>4 Cardiac & Pulmonary Exam Cardiac Exam: Normal S1/S2 Heart Sounds Pulmonary Exam: Clear Bilateral Breath Sounds Implantable Cardiac Device Does patient have a Pacemaker or an ICD?: No Airway Exam Known Difficult Airway: No Mallampati Class: 2 Mouth Opening: Normal (> 3cm) Thyromental Distance: Greater than 3 cm Neck Range of Motion: Full ROM Neck Circumference: Normal Teeth Condition: Generalized Poor Dentition and Other Airway Comments: All teeth missing except #44, 43, 32, 34 ASA Classification ASA Score: ASA 3 Emergency Case?: No NPO Status NPO Status: NPO Clears >2 hours, Solids >8 hours Anesthesia Plan Resuscitation Status: Full Code Anesthesia Technique: Spinal Anesthesia Airway Planned: Natural Airway Monitors Used: Standard Monitors
--- NOTE | 2025-04-03 15:26 | PHA.REVIEW2 ---
Pharmacy Admission Review Admission Clinical Review Admission Pharmacy Review: Perirectal abscess (Acute) lactose Adverse Reaction (Verified 04/02/25 07:57) intolerant Resuscitation Status Full Code Height 5 ft 7 in Weight 88.904 kg Comments Comments/Follow Ups: Watch VS, SCr, H/H, mag, labs, for culture results and for med changes (possible renal dose adjustments, IV to PO once pt is no longer NPO). Pharmacy Admission Review Renal Dosing Renal Dosing: BUN 29 mg/dL (7-18) H 04/03/25 06:19 Creatinine 1.6 mg/dL (0.70-1.30) H 04/03/25 06:19 Medications needing adjustments: Reviewed (Crcl ~50.3 mL/min current meds are okay) Anticoagulation Anticoagulation: Hgb 11.8 g/dL (13.5-17.5) L D 04/03/25 06:19 Hct 35.4 % (40.0-50.0) L 04/03/25 06:19 Plt Count 350 10^3/uL (130-400) 04/03/25 06:19 Creatinine 1.6 mg/dL (0.70-1.30) H 04/03/25 06:19 DVT Prophylaxis: Reviewed Medications: Heparin Opiate Usage Evaluate Pain Scale/Pains Meds: Reviewed Scheduled Bowel Reg ordered if on Opiates?: Yes Relevant Labs Relevant Labs: Sodium 132 mmol/L (136-145) L 04/03/25 06:19 Potassium 4.3 mmol/L (3.5-5.1) 04/03/25 06:19 Chloride 97 mmol/L (98-107) L 04/03/25 06:19 Magnesium 1.4 mg/dL (1.8-2.4) L 04/02/25 09:00 Electrolytes, C-Reactive P, ESR: Reviewed (IV mag was given yesterday) DM Control DM Control: Glucose 143 mg/dL (74-106) H 04/03/25 06:19 DM Control: Reviewed (No DM in pt's medical history, no A1c on file) Cardiac Review Cardiac Review: Blood Pressure 143/63 Blood Pressure 102/84 Blood Pressure 109/61 Blood Pressure 108/73 Blood Pressure 101/68 BP, HR, EF%: Reviewed (BP has been up and down some and HR has been normal to high so far this admission) QTc Review QTc: Reviewed (QTc 421 on EKG from 04/02) IV to PO Switch IV Medications: Reviewed Home Meds Home Med List reviewed: Reviewed Relevent Home Meds Not ordered & why?: gabapentin Current Meds Current Medication Order Review: Intervened (Discontinued pacu meds from yesterday. ) Pharmacy Antibiotic Review Pharmacy Antibiotic Activity: C/S review (Blood cultures no growth at 24 hours, abscess culture gram stain notes few gram negative rods. Zosyn continues (day 2).) and Reviewed, no change Comments Comments/Follow Ups: Watch VS, SCr, H/H, mag, labs, for culture results and for med changes (possible renal dose adjustments, IV to PO once pt is no longer NPO).
--- NOTE | 2025-04-03 15:37 | NUR.NOTE ---
Nursing Note: This nurse requested patient remove his underwear prior to being wheeled down to PACU for planned procedure. It was explained to the patient that prior to being wheeled down to the PACU/OR all civilian cloths, glasses, and jewelry needed to be removed. The patient refused to remove underwear (mesh OR underwear from yesterdays procedure) and stated the staff in the OR will just cut his underwear off anyway. This nurse asked if it was okay to cut his underwear and the patient agreed. This nurse cut the sides of underwear and left underwear in place blankets reapplied and patient wheeled down to PACU. AMY Marcus was in the room during this time and assisted this nurse in transporting the patient down to the PACU.
--- NOTE | 2025-04-03 15:51 | W.PM.OP ---
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 He provided informed consent. Next, we went back to the operating room. The anesthesia service provided a spinal anesthetic for a saddle block. Humberto was then assisted to the prone jackknife position, and the gluteus were gently retracted laterally. Anesthesia was initiated, and after timeout, a previous wound packing was all removed. It was quite clean. I then performed a digital rectal exam. Again noted was what felt like a posterior midline defect in the upper anal column. Ocampo anal retractor was then placed, and in fact there was clearly a large hole in the posterior wall at the upper portion of the anal column. I would estimate it to be about 1 cm top to bottom by about 0.75 cm left or right. This was irrigated clean. Normal anatomy was quite distorted by all of the inflammation, but I suspect that at least some of the internal sphincter complex is involved here. That would fit with his presenting fecal incontinence symptom. Since the abscess cavity seems well-drained, there is been minimal contamination overnight, I felt the safest thing to do at this point was to leave this fistula alone rather than attempt closure. Will try to bridge this using a Flexi-Seal fecal management system. Therefore, I irrigated the cavity clean. We used 3 L of saline solution. The wound was then gently repacked with Kerlix gauze, and a Flexi-Seal device was placed into the rectal vault and 45 mL of water were added to the balloon to help secure it in place. The Flexi-Seal system was irrigated with saline solution, and there was no evidence of any leakage around the balloon. It appears that this protects the posterior midline fistula. An ABD was applied over the wound packing, and secured in place with tape, and Humberto was then allowed awaken from the anesthetic, rolled to the supine position, transferred back to the postanesthesia care unit. Date of Procedure: 04/03/25
[2025-04-03] MEDS: Polyethylene Glycol 3350 17 GM PACKET PO (19:58)
[2025-04-03] MEDS: Normal Saline Flush 10 ML SYR (23:21)
[2025-04-04 00:36] VITALS: BP 152/83; PULSE 77; RESP 20; TEMP 36.6; O2SAT 97
[2025-04-04] MEDS: PIPERACILLIN/TAZO 3.375 GM in Normal Saline 50 ML IVPB ×4 (00:43→23:55)
[2025-04-04] MEDS: HYDROmorphone 2 MG/ML SYR 1 MG IVP (00:51)
[2025-04-04] MEDS: Normal Saline Flush 10 ML SYR IVP ×4 (00:51→19:50)
[2025-04-04] MEDS: ACETAMINOPHEN 1,000 MG/100 ML BTL 400 MG IVPB ×3 (04:58→19:46)
--- NOTE | 2025-04-04 05:25 | W.ANESPOSTOP ---
Postoperative Evaluation Date, Time and Location Date Performed: 04/03/25 Time Performed: 16:04 Patient Location: PACU Vital Signs Most Recent Imported Vital Signs: Most Recent Vital Signs Temp Pulse Resp BP Pulse Ox 36.6 C 77 20 152/83 H 97 04/04/25 00:36 04/04/25 00:36 04/04/25 00:36 04/04/25 00:36 04/04/25 00:36 Most Recent Vital Signs Temp Pulse Resp BP Pulse Ox 37.0 C 90 20 107/59 L 94 04/02/25 15:30 04/02/25 12:47 04/02/25 12:47 04/02/25 12:47 04/02/25 12:47 Pain Score Most Recent Pain Score: Most Recent Pain Score Pain Level [Left Buttocks] 7 04/03/25 12:35 Pain Level 6 04/04/25 00:51 Assessment Mental Status: Awake (Alert & Oriented to Patient Baseline) Airway and Respiratory Function: Patent airway with normal (patient baseline) respiratory exam Cardiovascular Function: Hemodynamically Stable Hydration Status: Adequately Hydrated Nausea & Vomiting: No Nausea or Vomiting Pain: Pt. Denies Any Pain Peripheral Nerve Block: Patient did not receive a nerve block
[2025-04-04] MEDS: Heparin 5,000 UNITS/ML VIAL 5000 UNITS SC ×2 (06:15→18:11)
[2025-04-04 06:36] LABS: HCT 34.2 % (40.0-50.0); HGB 11.8 g/dL (13.5-17.5); MCH 31.1 pg (27.0-33.0); MCHC 34.5 % (32.0-36.0); MCV 90 fL (80-95); MPV 9.4 fL (8.0-11.0); Platelet Count 378 10^3/uL (130-400); RDW 11.6 % (11.8-14.1); RDW-SD 38.1 fL; WBC 18.52 10^3/uL (4.4-10.8)
[2025-04-04 06:55] LABS: Anion Gap 7.4 mmol/L (3-11); BUN 31 mg/dL (7-18); CO2 27.6 mmol/L (21.0-32.0); CREATININE 1.7 mg/dL (0.70-1.30); Calcium 8.8 mg/dL (8.5-10.1); Chloride 98 mmol/L (98-107); Estimated GFR 44.74 (mL/min/1.73m2); Glucose 113 mg/dL (74-106); Potassium 3.3 mmol/L (3.5-5.1); Sodium 133 mmol/L (136-145)
[2025-04-04] MEDS: Cholecalciferol (Vitamin D3) 1,000 UNIT TAB 5000 UNITS PO (08:27)
[2025-04-04] MEDS: Losartan 50 MG TAB 100 MG PO (08:28)
[2025-04-04] MEDS: Cyanocobalamin 500 MCG TAB 1000 MCG PO (08:28)
[2025-04-04] MEDS: Chlorthalidone 25 MG TAB PO (08:29)
[2025-04-04] MEDS: Folic Acid 1 MG TAB PO (08:30)
[2025-04-04] MEDS: Atorvastatin 40 MG TAB PO (08:30)
[2025-04-04 09:15] VITALS: BP 148/80; PULSE 64; RESP 16; TEMP 36.3; O2SAT 97
--- NOTE | 2025-04-04 09:24 | PDOC.CMPRO ---
Date of service: 04/04/25 Time of Service: 09:24 Care Management Progress Note Progress Note Text Progress Note Text: Selvin was lying in bed when CM arrived. He states that his mother has been in to see him today, and once yesterday. Selvin states that his pain is a 6/10 today and that he had no sleep last night causing him to feel tired. Selvin states that things have gone well after his surgery and he is hopeful to feel better soon. CM will continue to follow. Discharge Potential Discharge Needs: PCP F/U Appt and Surgical F/U Appt Anticipated Barriers to Discharge: None Identified Patient/Family Education Needs: Review discharge instructions, discuss Ask Me Three Transportation: Private vehicle ([employer] will transport) Plan: Anticipate Selvin will be discharged home once medically ready. He will follow up with his community providers, surgical team, and continue per his discharge plan of care. Selvin will transport via private vehicle by his mother. CM will continue to follow. Social Determinants of Health Screening Social Determinants of health last assessed in clinic: 04/04/25 Will the Patient Participate in the Screening?: Yes Do you worry about having a steady place to live?: no Problems where you live: no known problems In the past 12 months, have you had to go without electric, gas, oil or water in your home?: no 1. Within the past 12 months, we worried whether our food would run out before we got money to buy more.: Never true 2. Within the past 12 months, the food we bought just didn't last and we didn't have money to get more.: Never true Has lack of transportation kept you from medical appointments or from doing things needed for daily living?: no Has anyone in your life made you feel unsafe or unsupported?: no How hard is it for you to pay for the very basics like food, housing, medical care, and heating? Would you say it is:: Not hard at all Do you want help finding or keeping work or a job?: I do not need or want help If for any reason you need help with day-to-day activities such as bathing, preparing meals, shopping, managing finances, etc., do you get the help you need?: I don?t need any help How often do you feel lonely or isolated from those around you?: Never Do you speak a language other than [place] at home?: Yes Does the patient want assistance with any of the above?: No Health Related Social Needs Health related social needs: education (Z55.6) Health related social needs details: Speaks [place] at home.
[2025-04-04 12:29] VITALS: BP 141/89; PULSE 69; RESP 16; TEMP 36.3; O2SAT 98
--- NOTE | 2025-04-04 12:48 | W.PM.PROGNOT ---
Date of Service Date of service: 04/04/25 Time of Service: 12:48 Assessment and Plan Assessment and plan (1) Perirectal abscess: Status: Acute Assessment and plan: 65-year-old man with a perirectal abscess that was drained. Sounds like he has a certain fistula. Whether or not this is going to completely heal up on its own is unclear. Certainly the fistula may actually develop and typical in usual fashion. He describes an issue with hemorrhoids about a week and a half leading up to this problem and so I wonder how that is related. He is not diabetic and is not immunocompromised. Time will tell whether or not this will go away completely or need further operative intervention down the road. After detailed discussion with him, he wants to have the rectal tube removed which I think is a good idea. He can use adult diapers and absorbing pads as needed and as necessary. I did warn him from an expectation standpoint, that this will continue for at least a few days if not a few weeks and possibly longer. Fecal incontinence is not a problem for him historically but may be a problem going forward for the next few weeks and even months. Time will tell. He needs to do some sitz bath's and we will get this going for him here in the hospital. He can probably be discharged home tomorrow after we remove the packing and decide whether or not more packing needs to go in. Probably more packing does NOT need to go in. Antibiotics in general are not needed in these cases once source control is achieved, however he has been on antibiotics for 48 hours now and I think completing a total 5-day course is probably the most reasonable endpoint. Anticipate home tomorrow. Again, fecal incontinence may be a problem for the next couple of months. Time will tell. I reinforced this concept and reality multiple times with him. Overall recommendations: Regular diet Remove rectal tube Out of bed DVT prophylaxis Sitz bath's 3-6 times a day Remove packing tomorrow and discharge home Subjective Subjective Interval history since last seen: Overnight and this morning Tate continues to complain about the issues with his rectal tube Is not helping. Fecalized liquid is going around the tube and onto his sheets in bed. He feels like he needs to urinate but cannot because of the tube. He reports the pain and discomfort is 6. Exam Narrative Exam Narrative: Gen: Non-toxic, comfortable and interactive. He is in no extremis and able to converse easily as well as move around without any difficulty. Neuro: Alert and oriented x3 Psych: Good mood and affect. Good insight and understanding into condition. Chest: Non-labored breathing, no wheezing, no visible shortness of breath. Heart: Regular Perianal: Rectal tube is intact but lots of leakage and soilage around the tube on the outside and on the sheets and on the chux. Packing intact -stained but dry. Objective Last Vital Signs Temp 97.3 F L 04/04/25 12:29 Pulse 69 04/04/25 12:29 Resp 16 04/04/25 12:29 BP 141/89 H 04/04/25 12:29 Pulse Ox 98 04/04/25 12:29 Laboratory Results - last 24 hr 04/04/25 06:28 WBC 18.52 H RBC 3.80 L Hgb 11.8 L Hct 34.2 L MCV 90 MCH 31.1 MCHC 34.5 RDW 11.6 L Plt Count 378 MPV 9.4 Sodium 133 L Potassium 3.3 L D Chloride 98 Carbon Dioxide 27.6 Anion Gap 7.4 BUN 31 H Creatinine 1.7 H Est GFR (CKD-EPI 2020) 44.74 Glucose 113 H Calcium 8.8 Time Spent with Patient Time Spent with Patient: 25-34 minutes Time was spent: preparing to see the patient(eg.review tests), obtaining and/or reviewing separately otained hiistory, ordering medications,tests, procedures, indepentently interpreting results, counseling the patient and care coordination
--- NOTE | 2025-04-04 13:37 | CHAPLAIN ---
Rajan was in bed when I visited. His mom and another woman were with him. I explained my role and offered support. Selvin told me that he's all set and declined further conversation.
[2025-04-04 14:29] VITALS: BP 125/84; PULSE 100; O2SAT 96
[2025-04-04 15:37] VITALS: TEMP 36.8
[2025-04-04 19:45] VITALS: BP 132/68; PULSE 69; RESP 20; TEMP 36.4; O2SAT 97
[2025-04-05] MEDS: ACETAMINOPHEN 1,000 MG/100 ML BTL 400 MG IVPB (03:55)
[2025-04-05 04:19] VITALS: BP 134/86; PULSE 59; RESP 16; TEMP 36.7; O2SAT 100
[2025-04-05] MEDS: Heparin 5,000 UNITS/ML VIAL 5000 UNITS SC (06:17)
[2025-04-05] MEDS: PIPERACILLIN/TAZO 3.375 GM in Normal Saline 50 ML IVPB (07:39)
[2025-04-05] MEDS: Cholecalciferol (Vitamin D3) 1,000 UNIT TAB 5000 UNITS PO (07:39)
[2025-04-05] MEDS: Cyanocobalamin 500 MCG TAB 1000 MCG PO (07:40)
[2025-04-05] MEDS: Normal Saline Flush 10 ML SYR IVP (07:40)
[2025-04-05] MEDS: Atorvastatin 40 MG TAB PO (07:40)
[2025-04-05] MEDS: Folic Acid 1 MG TAB PO (07:40)
[2025-04-05] MEDS: Chlorthalidone 25 MG TAB PO (07:40)
[2025-04-05] MEDS: Losartan 50 MG TAB 100 MG PO (07:53)
[2025-04-05 08:22] VITALS: BP 152/89; PULSE 63; RESP 15; TEMP 36.9; O2SAT 96
--- NOTE | 2025-04-05 09:28 | DSE_ITS ---
Date of service: 04/05/25 Time of Service: 09:28 DS: Diagnosis Discharge Diagnosis (1) Perirectal abscess: Status: Acute Asessment and Plan: 65-year-old man with a perirectal abscess that was drained in the operating room. He is doing great and is hemodynamically stable. Subjectively he has no complaints today and is very happy and excited about getting home. Removing his rectal tube and having sitz baths yesterday made him very happy. I removed his packing at the bedside. No further packing is necessary. PLAN: Discharge home Sitz bath 3x - 6x daily for the next 2 weeks Follow-up in 1-2 weeks Discharge Plan Disposition Patient Disposition: Home Condition: Improving Discharge Details Reason For Visit: Perirectal abcess Admit Date/Time: 04/02/25 11:07 Admit Provider: Silviano Jones Attending Provider: Silviano Jones [facility] Course: 65-year-old man presented with a perirectal abscess. He was taken the operating room and it was drained. The next day he was taken back for packing change/replacement as well as a fecal management system because he was having ongoing fecal incontinence. On hospital day #3 that system was not really working well and he was leaking around it and it was really frustrating him and so it was removed. On hospital day #4 the packing was removed and he was doing excellent and was discharged home. Home Meds and New Rx's Prescriptions: No Action cyanocobalamin (vitamin B-12) 1,000 mcg capsule 1,000 mcg PO DAILY folic acid 1 mg Tablet 1 mg PO DAILY cholecalciferol (vitamin D3) [Vitamin D3] 5,000 unit Tablet 5,000 unit PO DAILY losartan [Cozaar] 100 mg tablet 100 mg PO DAILY gabapentin [Neurontin] 300 mg capsule 1,200 mg PO QHS Patient Comments: prescribed 900mg but takes 1200mg atorvastatin 40 mg tablet 40 mg PO DAILY chlorthalidone 25 mg tablet 25 mg PO DAILY Discharge Instructions Additional Instructions: Incision: Nothing needs to be done about it. Do sitz bath's 3-6 times a day. It may continue to ooze and leak a little bit and you can use adult diapers or gauze absorbing pads as needed. It does not need to be covered in the padding and the gauze is only to protect your clothing. Activity: As tolerated. There are no restrictions. Diet: Regular diet as tolerated Medications: Resume any/all of your usual/regular home medications Follow-up: Follow-up in the surgery office in 1 to 2 weeks Pain control: Take Tylenol as needed Overall: Symptoms should not be worsening. If you have any difficulty breathing or you have return of symptoms of brought you to the hospital or your pain is o therwise worsening each day and you should call the doctor's office or come into the hospital to be checked out. Activity:: Activity as Tolerated Equipment/Supplies:: No Equipment Needed Diet:: As Tolerated DS: Summary Time Spent with Patient providing and/or coordinating discharge services: Less than 30 minutes Status at Discharge Functional status at discharge: independent ambulation Overall status at discharge: patient is progressing back to baseline Mental Status: mental status grossly normal Speech and Movement: speech and movement normal Mood: congruent mood Affect: normal affect Quality:SDOH Health Related Social Needs: Health related social needs education (Z55.6) Health related social needs details Speaks Bangladeshi at h ome. Health related social needs details: Speaks Bangladeshi at home. Exam Narrative Exam Narrative: Gen: Non-toxic, comfortable and interactive Neuro: Alert and oriented x3 Psych: Cheerful and upbeat mood, good insight and understanding Chest: Non-labored breathing, no wheezing, no visible shortness of breath. Heart: Regular Perianal: Packing removed. Abdominal pad stained but otherwise dry. Psych Mental Status: mental status grossly normal Speech and Movement: speech and movement normal Mood: congruent mood Affect: normal affect DS: Data Vitals/I&O Vitals and I&O: Vital Signs Temperature 98.4 F 04/05/25 08:22 Temperature Source Temporal Artery Scan 04/05/25 08:22 Pulse 63 04/05/25 08:22 Pulse Rhythm Regular 04/02/25 16:12 Pulse 59 L 04/03/25 16:25 Respiratory Rate 15 04/05/25 08:22 Respiratory Effort Normal, Non-Labored 04/02/25 16:12 Respiratory Depth Normal 04/02/25 16:12 Respiratory Pattern Normal 04/02/25 16:12 Blood Pressure 152/89 H 04/05/25 08:22 Blood Pressure Mean 110 04/05/25 08:22 Blood Pressure Position Supine 04/02/25 07:51 Pulse Oximetry 96 04/05/25 08:22 Respiratory End-tidal CO2 42 04/02/25 15:50 Oxygen Delivery Method Room Air 04/05/25 08:22 Oxygen Flow Rate 0 04/05/25 08:22 Pain Level 4 04/05/25 04:19 Comment RN notified 04/05/25 08:22 Intake & Output 04/04/25 04/04/25 04/05/25 11:59 23:59 11:59 Intake Total 790 / 1685 895 / 1685 155 / 155 Output Total 800 / 2525 1725 / 2525 1000 / 1000 Balance -10 / -840 -830 / -840 -845 / -845 Intake: IV 170 / 1065 895 / 1065 155 / 155 Oral 570 / 570 Injectate 50 / 50 Flexiseal rectal tube 50 / 50 Output: Urine 800 / 2225 1425 / 2225 1000 / 1000 Stool 300 / 300 Other: Urine Color Yellow Yellow Yellow Urine Appearance Clear Clear Clear Urine Odor Normal None Stool Size Moderate Moderate Stool Characteristics Liquid Liquid Soft Brown Mucoid Brown Data Completed and Pending Labs on day of discharge: 04/02/25 14:57 Rectal Anaerobic Culture - Pending Preliminary micro results at discharge 04/02/25 09:51 Blood Blood Culture - Preliminary NO GROWTH 48 HOURS 04/02/25 09:28 Blood Blood Culture - Preliminary NO GROWTH 48 HOURS 04/02/25 14:57 Rectal Abscess Culture - Preliminary Gram positive praveen, mixed 04/02/25 14:57 Rectal Anaerobic Culture - Pending PFSH All Active Problems Perirectal abscess (Acute) Obesity (Chronic) Uncontrolled hypertension (Acute) History of prior cigarette smoking (Acute) Alcohol abuse (Chronic) Fracture of distal end of fibula (Acute 09/30/19) Social History Smoking/Tobacco Use Status: Former Tobacco Use Smoking risk assessment performed?: Yes Alcohol Intake: former Drug use: Occasionally Substance use type: marijuana Housing: house Current gender identity: male Do you feel safe at home: Yes Do you feel safe in your relationship?: Yes Time Spent with Patient Time Spent with Patient: 45-69 minutes Time was spent: preparing to see the patient(eg.review tests), obtaining and/or reviewing separately otained hiistory, ordering medications,tests, procedures, indepentently interpreting results, counseling the patient and care coordination
--- NOTE | 2025-04-05 09:40 | PDOC.CMDIS ---
Date of service: 04/05/25 Time of Service: 09:40 LACE Index Scoring Tool Questions: Length of Stay (in days): 3 Was the patient admitted via the E.D.?: Yes E.D. Visits: 1 Answers: Total Score: 7 Risk of Readmission: Low Risk Care Management Discharge Plan Reason for Hospitalization: Perirectal Abscess Discharge Plan: Selvin will be discharged home with no new services. He will follow up with his community providers, surgical team, and continue per his discharge plan of care. Selvin will transport via private vehicle by his mother. Patient/Family Education Needs: Review of discharge instructions, activity, limitations and plan of care. Discuss Ask Me Three. SDOH Health Related Social Needs: Health related social needs education (Z55.6) Health related social needs details Speaks Ethiopian at home. Health related social needs details: Speaks Ethiopian at home.
== END 2025-04-05 12:05 | disposition home or self-care (01) ==
LOC: ER 11:35 → MS 13:30
PROVIDERS: Admitting Provider Surgery; Emergency Provider Physician Assistant; PCP Internal Medicine; Responsible Provider Surgery; Visit Provider Surgery
PROC: (CPT 46040; principal; 2025-04-02 13:45)
DX: K60.321 Anal fistula, complex, initial (principal); N17.9 Acute kidney failure, unspecified; I10 Essential (primary) hypertension; E66.9 Obesity, unspecified; Z87.891 Personal history of nicotine dependence; F10.10 Alcohol abuse, uncomplicated; F12.90 Cannabis use, unspecified, uncomplicated; D72.829 Elevated white blood cell count, unspecified; Z68.30 Body mass index [BMI] 30.0-30.9, adult
CPT/HCPCS: 46040; 45990; 36415; 80048; 80053; 85027; 87040; 87077; 88305; 93005; 96361; 96365; 96367; 96375; 99285; 71046; 74176; 81003; 81015; 83605; 83735; 85025; 87070; 87075; 87186; 87205; 88304; 93010; G0378; J0131; J0665; J0666; J1100; J1171; J1644; J1885; J2003; J2250; J2270; J2371; J2405; J2543; J2704; J3010; J3475

== ENCOUNTER 2025-06-29 08:03 | Emergency (ER) | payer OTHER, SELFPAY ==
[2025-06-29] VITALS (16 sets, daily range): BP systolic 119–124; BP diastolic 79–106; PULSE 60–84; RESP 14–22; TEMP 37.2; O2SAT 93–97
--- NOTE | 2025-06-29 08:15 | DI.CT_ITS ---
Exam(s) CT CERVICAL SPINE WO EXAM: CT CERVICAL SPINE WO CLINICAL HISTORY: neck and back pain, surgical history. TECHNIQUE: Imaging Protocol: Axial computed tomography images with coronal and sagittal reformatted images were created and reviewed COMPARISON: No exams were available for comparison FINDINGS: CERVICAL SPINE: There is evidence of previous surgery C4-5 and C5-6 levels. There are intervertebral disc space devices at these 2 levels these are in satisfactory position; not retropulsed. Artifact from these devices makes evaluation of the spinal canal at these levels somewhat difficult. There are bilateral Luschka joint osteophytes at these 2 levels. There is no evidence of acute fracture. No significant prevertebral soft tissue swelling. There is no listhesis. Facet joints appear unremarkable at all levels. Some calcification is noted posteriorly in the supraspinous ligament. There is chronic disc space narrowing at 1 level below the surgery which is C6-7. No significant osseous lesions evident. No evidence of osteomyelitis. IMPRESSION: There is evidence of prior surgery with intervertebral disc space devices at C4- 5 and C5-6 levels. There are no obvious acute findings, realizing the limitations of CT scan for cervical spine imaging. RADIATION DOSE DELIVERED: 390.49mGy.cm Total DLP DATA REPOSITORY: All CT scans at this facility are submitted to the National Radiology Data Registry (NRDR) Dose Index Registry (DIR) with the [employer] ([employer]). RADIATION OPTIMIZATION: All CT scans at this facility use at least one of these dose optimization techniques: automated exposure control; mA and/or kV adjustment per patient size (includes targeted exams where dose is matched to clinical indication); or iterative reconstruction.
--- NOTE | 2025-06-29 08:15 | DI.CT_ITS ---
Exam(s) CT THORACIC LUMBAR SPINE WO EXAM: CT THORACIC LUMBAR SPINE WO CLINICAL HISTORY: neck and low back pain. TECHNIQUE: Imaging Protocol: Axial computed tomography images with coronal and sagittal reformatted images were created and reviewed. CONTRAST MATERIAL: Intravenous: None COMPARISON: No exams were available for comparison FINDINGS: THORACIC SPINAL COLUMN: No evidence of fracture or listhesis. There is a Schmorl's node invagination in the inferior endplate of T11. There are multilevel anterior osteophytes. No facet joint malalignment. No acute compromise of the spinal canal. LUMBOSACRAL SPINAL COLUMN: No evidence of fracture or listhesis nor pars defects. There is mild disc space narrowing at L2-3 level. No osseous lesions. No facet malalignment. Sacroiliac joints appear age-appropriate. No sacral fractures. No osseous lesions a. IMPRESSION: No acute osseous findings in the thoracic and lumbosacral spinal columns. Report called to ER 06/29/2025 at 9:47 a.m. RADIATION DOSE DELIVERED: 1,838.9mGy.cm Total DLP DATA REPOSITORY: All CT scans at this facility are submitted to the National Radiology Data Registry (NRDR) Dose Index Registry (DIR) with the [employer] (ACR). RADIATION OPTIMIZATION: All CT scans at this facility use at least one of these dose optimization techniques: automated exposure control; mA and/or kV adjustment per patient size (includes targeted exams where dose is matched to clinical indication); or iterative reconstruction.
--- NOTE | 2025-06-29 08:18 | ED.GENADUL_ITS ---
Discharge Plan Disposition Patient Disposition: Home Condition: Stable Discharge Details Clinical Impression: Bilateral sacroiliitis, Schmorl nodes of thoracic region Primary Care Provider: Renita Vargas ED Provider: Juan Manuel Helm Home Meds and New Rx's Prescriptions: New cyclobenzaprine 10 mg tablet 10 mg PO TID PRNQty: 30 0RF prednisone 20 mg tablet 40 mg PO DAILY 4 Days Qty: 8 0RF Rx Instructions: Start tomorrow 06/30- first dose given today in ER Continued folic acid 1 mg Tablet 1 mg PO DAILY cholecalciferol (vitamin D3) [Vitamin D3] 5,000 unit Tablet 5,000 unit PO DAILY losartan [Cozaar] 100 mg tablet 100 mg PO DAILY atorvastatin 40 mg tablet 20 mg PO DAILY chlorthalidone 25 mg tablet 25 mg PO DAILY cetirizine [24Hour Allergy] 10 mg tablet 10 mg PO DAILY fluticasone propion-salmeterol [Advair Diskus] 100-50 mcg/dose blister with device 1 inh inhalation BID Discharge Instructions Instructions: Cyclobenzaprine, Prednisone, Degenerative Disc Disease ED, Sacroiliac Joint Pain ED Additional Instructions: You were seen in the emergency department for your diffuse back pain and SI joint tenderness, you have elements of sciatica on exam and you are neurovascularly intact in all extremities. You do have the interesting finding of a Schmorl's node of T11, this is likely causing a herniation as the bone is weakened here, please contact your spinal surgeon for short term follow-up. Please take the prescribed muscle relaxer-cyclobenzaprine 3 times per day as needed for muscle spasm, I sent a 5-day course of prednisone for its anti- inflammatory effects. Please take regular doses of Tylenol Profen and apply an [id number] lidocaine patch to the area of the pain each day for the worse. Alternate heat and ice to areas of pain, keep attending your physical therapy visits. Please return to the emergency department with severe increase in pain with fever, numbness to the genitalia, urinary retention, bowel incontinence, weakness to the legs. Referrals: Renita Vargas [Primary Care Provider, Medicine] Discharge Data Discharge Date/Time-TO BE ENTERED AT DEPARTURE: 06/29/25 10:47 HPI General Date/Time Provider Initiated Documentation: 06/29/25 08:12 . HPI Narrative: 65 year-old male presents to ED today by POV/ambulating with a chief complaint of acute on chronic neck and lower back pain- history of cervical fusion 2023, with onset over the past few days. Quality described as sharp shooting pains donita n each leg intermittently, denies current arm radiculopathy, no radiation to urinary retention, bowel incontinence, trauma, numbness to genitalia, leg weakness, trips & falls. Severity is described as moderate. Palliating factors include nothing specific attempted today. Provoking factors include certain movements. Patient not anticoagulated. Related Data Home Medications ?Medication ?Instructions ?Recorded ?Confirmed cholecalciferol (vitamin D3) 125 5,000 unit PO DAILY 0 07/25/19 06/29/25 mcg (5,000 unit) tablet (Vitamin D3) folic acid 1 mg tablet 1 mg PO DAILY 07/25/1906/29 atorvastatin 40 mg tablet 20 mg PO DAILY 04/07/2407/16 losartan 100 mg tablet (Cozaar) 100 mg PO DAILY 06/29/25 chlorthalidone 25 mg tablet 25 mg PO DAILY 04/02/25 cetirizine 10 mg tablet (24Hour 10 mg PO DAILY 5 06/29/25 Allergy) cyclobenzaprine 10 mg tablet 10 mg PO TID PRN #30 tabs 06/29/25 fluticasone 100 mcg-salmeterol 50 1 inh inhalation BID 06/29/25 06/29/25 mcg/dose blistr powdr for inhalation (Advair Diskus) prednisone 20 mg tablet 40 mg (2 x 20 mg) PO DAILY 4 days 06/29/25 #8 tabs Previous Rx's ?Medication ?Instructions ?Recorded cyclobenzaprine 10 mg tablet 10 mg PO TID PRN #30 tabs 06/29/25 prednisone 20 mg tablet 40 mg (2 x 20 mg) PO DAILY 4 days 06/29/25 #8 tabs Allergies Allergy/AdvReac Type Severity Reaction Status Date / Time lisinopril AdvReac Mild Other (See Verified 06/29/25 08:10 Comment) lactose AdvReac intolerant Verified 06/29/25 08:09 General Stated Complaint: Nk/Back Pain ROB: 3 Review of Systems All systems reviewed & are unremarkable except as noted in HPI and below Exam Narrative Exam Narrative: GENERAL APPEARANCE: Well-nourished, non-toxic, awake and alert, atraumatic, no acute distress. SKIN: Warm, pink, dry, intact, without rashes/lesions/ulcerations. HEAD: Normocephalic, atraumatic, normal hair distribution for gender/age. EYES: Normal conjunctiva, no exudates on lids/lashes. ENT: Nares patent, no circumoral cyanosis, no facial swelling NECK: Supple, trachea midline, painless cervical ROM, no crepitus/step-offs LUNGS/CHEST: Non-labored respirations, normal A/P diameter, symmetrical expansion, no chest wall deformity HEART (CV/PV): No peripheral edema, no JVD. ABDOMEN: Soft, non-distended, no guarding. MSK: Normal ROM, no swelling/deformity to bilateral UEs or LEs, moving all extremities without weakness, no cyanosis, spine midline with with mild tenderness mid-low thoracic without crepitus/step-off, bilateral SI joint tenderness, SLR passive raising causes pain in sciatic distribution, normal curvature. NEURO: Mental Status AAOx4 - alert to person, place, time, events No facial droop, no forehead involvement. Motor: No focal weakness - strength 5/5 in bilateral UEs and LEs, proximal and distal, symmetric. Sensory: sensation intact to light touch globally. Gait normal: patient ambulated without ataxia into ED room. PSYCH: euthymic, cooperative, pleasant, appropriate speech Course Vital Signs Vital signs: Vital Signs Temperature 37.2 C 06/29/25 08:07 Pulse 74 06/29/25 08:07 Respiratory Rate 14 06/29/25 08:07 Blood Pressure 121/106 H 06/29/25 08:07 Pulse Oximetry 96 06/29/25 08:07 Temperature 37.2 C 06/29/25 08:07 Temperature Source Oral 06/29/25 08:07 Pulse 74 06/29/25 08:07 Respiratory Rate 14 06/29/25 08:07 Blood Pressure 121/106 H 06/29/25 08:07 Blood Pressure Position Sitting 06/29/25 08:07 Pulse Oximetry 96 06/29/25 08:07 Oxygen Delivery Method Room Air 06/29/25 08:07 Oxygen Flow Rate 0 06/29/25 08:07 Pain Level 7 06/29/25 08:13 Medical Decision Making This dictation utilizes [id number] dictation software and may contain unedited grammatical errors. 65 year-old male presents to ED today by POV/ambulating with a chief complaint of acute on chronic neck and lower back pain- history of cervical fusion 2023, with onset over the past few days. Quality described as sharp shooting pains down each leg intermittently, denies current arm radiculopathy, no radiation to urinary retention, bowel incontinence, trauma, numbness to genitalia, leg weakness, trips & falls. Severity is described as moderate. Palliating factors include nothing specific attempted today. Provoking factors include certain movements. Patients' medical history: [ ]. Family and social history: [ ]. Pertinent exam findings / vital signs include pain in sciatic distribution with passive SLR range of motion of both legs, tenderness bilaterally to SI joint without crepitus, no saddle anesthesia, mild tenderness mid thoracic spine, neurovascular intact in all 4 extremities. Differential / pathologies of concern include degenerative disc disease, disc herniation, sciatica, sacroiliitis. Diagnostic studies of: -CT C-T-L spine wo Contrast - shows Smorls node T11, diffuse degenerative disc disease. Interventions of: -1g PO APAP, 30mg IM ketorolac, 10mg PO cyclobenzaprine, 40mg PO prednisone, Lidoderm patch TOP. With moderate relief of symptoms on re-eval. ED Course/Assessment/Plan: 65-year-old male presents with acute on chronic neck and back pain, has diffuse degenerative disc disease, neurovascular intact in all 4 extremities and has not attempted OTC pain relievers today, he did get good relief from a strong regimen of analgesics for back pain, he has new findings of a Schmorl's node at T11, he has orthospine follow-up, mild disc space narrowing at L2-L3 and bilateral SI joint tenderness on exam, with each leg raised passively in SLR fashion he has pain along the sciatic nerve consistent with a pinched nerve, I counseled him on adequate dosing of OTC analgesics and provided him Rx for muscle relaxer and a short course of prednisone to help with inflammation. Recommend he continue with physical therapy, strict return criteria for any severe increase in back pain with fever, neurovascular compromise or numbness to genitalia or bowel or urinary changes. Findings not consistent with cauda equina, spinal epidural abscess, neurovascular compromise. Disposition of Bilateral Sacroiliitis, Schmorl nodes of Thoracic Region. Patient verbalized understanding of the plan and return to ED criteria and engaged in shared decision making. Medical Records Medical records reviewed: Yes I reviewed the patient's medical records. Imaging Data Radiologic Study: Attestation: I personally reviewed and interpreted this imaging study as follows: Imaging: CT Scan Radiologist's impression: EXAM: CT CERVICAL SPINE WO CLINICAL HISTORY: neck and back pain, surgical history. TECHNIQUE: Imaging Protocol: Axial computed tomography images with coronal and sagittal reformatted images were created and reviewed COMPARISON: No exams were available for comparison FINDINGS: CERVICAL SPINE: There is evidence of previous surgery C4-5 and C5-6 levels. There are intervertebral disc space devices at these 2 levels these are in satisfactory position; not retropulsed. Artifact from these devices makes evaluation of the spinal canal at these levels somewhat difficult. There are bilateral Luschka joint osteophytes at these 2 levels. There is no evidence of acute fracture. No significant prevertebral soft tissue swelling. There is no listhesis. Facet joints appear unremarkable at all levels. Some calcification is noted posteriorly in the supraspinous ligament. There is chronic disc space narrowing at 1 level below the surgery which is C6- 7. No significant osseous lesions evident. No evidence of osteomyelitis. IMPRESSION: There is evidence of prior surgery with intervertebral disc space devices at C4- 5 and C5-6 levels. There are no obvious acute findings, realizing the limitations of CT scan for cervical spine imaging. Radiologic Study #2: Attestation: I personally reviewed and interpreted this imaging study as follows: Imaging: CT Scan Radiologist's impression: EXAM: CT THORACIC LUMBAR SPINE WO CLINICAL HISTORY: neck and low back pain. TECHNIQUE: Imaging Protocol: Axial computed tomography images with coronal and sagittal reformatted images were created and reviewed. CONTRAST MATERIAL: Intravenous: None COMPARISON: No exams were available for comparison FINDINGS: THORACIC SPINAL COLUMN: No evidence of fracture or listhesis. There is a Schmorl's node invagination in the inferior endplate of T11. There are multilevel anterior osteophytes. No facet joint malalignment. No acute compromise of the spinal canal. LUMBOSACRAL SPINAL COLUMN: No evidence of fracture or listhesis nor pars defects. There is mild disc space narrowing at L2-3 level. No osseous lesions. No facet malalignment. Sacroiliac joints appear age-appropriate. No sacral fractures. No osseous lesions a. IMPRESSION: No acute osseous findings in the thoracic and lumbosacral spinal columns. Lab Data Lab results reviewed: Yes I reviewed the patient's lab results. Quality:SDOH Health Related Social Needs: Health related social needs education Health related social needs details Speaks Latvian at [facility]. [facility] All Active Problems (Updated 06/29/25 @ 10:32 by IAN Merritt) Schmorl nodes of thoracic region (Acute) Bilateral sacroiliitis (Acute) Obesity (Chronic) Uncontrolled hypertension (Acute) History of prior cigarette smoking (Acute) Alcohol abuse (Chronic) Fracture of distal end of fibula (Acute 09/30/19) Medical History (Updated 06/29/25 @ 10:32 by IAN Merritt) Perirectal abscess Surgical History (Updated 04/06/25 @ 14:10 by Saskia Ferguson CMA) Status post incision and drainage (~03/2025) perirectal abscess I&D x2 Social History Smoking/Tobacco Use Status: Former Tobacco Use Smoking risk assessment performed?: Yes Alcohol Intake: former Drug use: Daily Substance use type: marijuana Details: Pt states he smokes marijuana daily 06/29/25 Housing: house Current gender identity: male Do you feel safe at home: Yes Do you feel safe in your relationship?: Yes
[2025-06-29] MEDS: Acetaminophen 500 MG TAB 1000 MG PO (09:18)
[2025-06-29] MEDS: predniSONE 20 MG TAB 40 MG PO (09:18)
[2025-06-29] MEDS: Ketorolac 30 MG/ML VIAL IM (09:18)
[2025-06-29] MEDS: Cyclobenzaprine 10 MG TAB PO (09:18)
[2025-06-29] MEDS: Lidocaine 5% Patch 1 PATCH TP (09:19)
[2025-06-29 09:44] LABS: Abs Immature Grans 0.12 10^3/uL (0.0-0.06); HCT 42.8 % (40.0-50.0); HGB 14.3 g/dL (13.5-17.5); Immature Grans % 1.0 %; MCH 30.1 pg (27.0-33.0); MCHC 33.4 % (32.0-36.0); MCV 90 fL (80-95); MPV 8.9 fL (8.0-11.0); Platelet Count 333 10^3/uL (130-400); RBC 4.75 10^6/uL (4.36-5.78); RDW 13.0 % (11.8-14.1); RDW-SD 43.4 fL; WBC 12.43 10^3/uL (4.4-10.8)
[2025-06-29 09:46] LABS: ESR 28 mm/hr (0-20)
[2025-06-29 10:03] LABS: ALT 28 U/L (16-63); AST 16 U/L (15-37); Albumin 3.7 g/dL (3.4-5.0); Alkaline Phosphatase 64 U/L (46-116); Anion Gap 8.0 mmol/L (3-11); BUN 20 mg/dL (7-18); Bilirubin, Total 0.4 mg/dL (0.2-1.0); C-Reactive Protein 1.77 mg/dL (<or=0.5); CO2 29.0 mmol/L (21.0-32.0); Calcium 9.0 mg/dL (8.5-10.1); Chloride 100 mmol/L (98-107); Estimated GFR 67.95 (mL/min/1.73m2); Glucose 124 mg/dL (74-106); Potassium 4.2 mmol/L (3.5-5.1); Sodium 137 mmol/L (136-145); Total Protein 7.8 g/dL (6.4-8.2)
== END 2025-06-29 10:47 | disposition home or self-care (01) ==
PROVIDERS: Emergency Provider Physician Assistant; PCP Internal Medicine
DX: M46.1 Sacroiliitis, not elsewhere classified (principal); M51.44 Schmorl's nodes, thoracic region
CPT/HCPCS: 99284 ×2; 96372; 80053; 85652; 72125; 72128; 72131; 85025; 86140; J1885; J7512

== ENCOUNTER 2025-07-07 08:29 | Emergency (ER) | payer OTHER, SELFPAY ==
[2025-07-07 08:35] VITALS: BP 122/84; PULSE 71; RESP 16; TEMP 36.7; O2SAT 96
[2025-07-07] MEDS: Cyclobenzaprine 10 MG TAB PO (09:07)
[2025-07-07] MEDS: predniSONE 20 MG TAB 40 MG PO (09:07)
[2025-07-07] MEDS: Acetaminophen 500 MG TAB 1000 MG PO (09:07)
[2025-07-07] MEDS: Ibuprofen 600 MG TAB PO (09:08)
[2025-07-07 09:30] LABS: HCT 43.2 % (40.0-50.0); HGB 14.3 g/dL (13.5-17.5); MCH 30.1 pg (27.0-33.0); MCHC 33.1 % (32.0-36.0); MCV 91 fL (80-95); MPV 8.7 fL (8.0-11.0); Platelet Count 336 10^3/uL (130-400); RBC 4.75 10^6/uL (4.36-5.78); RDW 13.2 % (11.8-14.1); RDW-SD 44.7 fL; WBC 15.16 10^3/uL (4.4-10.8)
--- NOTE | 2025-07-07 09:32 | W.ED.GENAD ---
Discharge Plan Disposition Patient Disposition: Home Discharge Details Clinical Impression: Lower back pain, Difficulty urinating Primary Care Provider: Renita Vargas ED Provider: True Medina Recommendations for Follow Up Recommended tests to be ordered by follow up provider: MRI C/T/L spine. Prostate Speciffic Antigen Home Meds and New Rx's Prescriptions: New oxycodone 5 mg capsule 5 mg PO TID PRNQty: 12 0RF tamsulosin 0.4 mg capsule 0.4 mg PO QHS Qty: 30 0RF No Action folic acid 1 mg Tablet 1 mg PO DAILY cholecalciferol (vitamin D3) [Vitamin D3] 5,000 unit Tablet 5,000 unit PO DAILY losartan [Cozaar] 100 mg tablet 100 mg PO DAILY atorvastatin 40 mg tablet 20 mg PO DAILY chlorthalidone 25 mg tablet 25 mg PO DAILY cetirizine [24Hour Allergy] 10 mg tablet 10 mg PO DAILY fluticasone propion-salmeterol [Advair Diskus] 100-50 mcg/dose blister with device 1 inh inhalation BID cyclobenzaprine 10 mg tablet 10 mg PO TID PRNQty: 30 0RF Discharge Instructions Additional Instructions: Please [facility] with [facility] regarding your visit to the emergency department today. Be sure to discuss referral to spine surgery urology as well as results of all test performed here today to include radiology, and laboratory testing as well as results for any pending cultures. Should your symptoms worsen, or if you develop new concerning symptoms, please return immediately emergency department for further evaluation, this would include inability to urinate, sudden weakness or paralysis of the legs, numbness incontinence or fever. Discharge Data Discharge Date/Time-TO BE ENTERED AT DEPARTURE: 07/07/25 14:05 HPI General Date/Time Provider Initiated Documentation: 07/07/25 08:33. HPI Narrative: The patient is a 65-year-old male with a medical history significant for hypertension, hyperlipidemia, and borderline diabetes mellitus, presenting with lumbar pain. The patient reports intermittent lumbar pain for the past week, predominantly on the left side, radiating across the spine and exacerbated by neck movement. The pain radiates to the lower back when seated, with an intensity described as 10/10 at its worst. He also experiences pain in both legs, more severe on the left than the right. The patient is currently undergoing physical therapy for shoulder and neck issues, which also addresses his lumbar pain. He performs prescribed stretching exercises. Despite an abnormal gait, there was no improvement with the use of a shopping cart last week. He has been advised to consult a spine surgeon. A CT scan was performed during his last visit. The patient has tried muscle relaxants, prednisone, lidocaine patches, Tylenol, and a heating pad, with only the heating pad providing relief. The pain diminishes with rest and worsens with movement. He has a history of spinal fusion surgery performed by Dr. Smith at [facility], [place] for a pinched nerve, which previously impeded his ability to raise his right hand above his head. The patient reports a change in urinary pattern over the past week, characterized by urinary hesitancy, transitioning from a steady stream to dribbling. His last urination was this morning at approximately 0730 hours. He has not experienced any recent fevers, chills, or new trauma since his last visit on June 29, 2025. There is no history of prostate issues. PAST SURGICAL HISTORY: - Spinal fusion surgery - Gluteal abscess surgery in March 2025 - Lipoma removal on September 26, 2024 Related Data Home Medications ?Medication ?Instructions ?Recorded ?Confirmed cholecalciferol (vitamin D3) 125 5,000 unit PO DAILY 07/25/19 07/07/25 mcg (5,000 unit) tablet (Vitamin D3) folic acid 1 mg tablet 1 mg PO DAILY 07/25/19 07/07/25 atorvastatin 40 mg tablet 20 mg PO DAILY 04/07/24 07/07/25 losartan 100 mg tablet (Cozaar) 100 mg PO DAILY 04/07/24 07/07/25 chlorthalidone 25 mg tablet 25 mg PO DAILY 04/02/25 07/07/25 cetirizine 10 mg tablet (24Hour 10 mg PO DAILY 06/29/25 07/07/25 Allergy) cyclobenzaprine 10 mg tablet 10 mg PO TID PRN #30 tabs 06/29/25 07/07/25 fluticasone 100 mcg-salmeterol 50 1 inh inhalation BID 06/29/25 07/07/25 mcg/dose blistr powdr for inhalation (Advair Diskus) oxycodone 5 mg capsule 5 mg PO TID PRN #12 caps 07/07/25 tamsulosin 0.4 mg capsule 0.4 mg PO QHS #30 caps 07/07/25 Previous Rx's ?Medication ?Instructions ?Recorded cyclobenzaprine 10 mg tablet 10 mg PO TID PRN #30 tabs 06/29/25 oxycodone 5 mg capsule 5 mg PO TID PRN #12 caps 07/07/25 tamsulosin 0.4 mg capsule 0.4 mg PO QHS #30 caps 07/07/25 Allergies Allergy/AdvReac Type Severity Reaction Status Date / Time lisinopril AdvReac Mild Other (See Verified 07/07/25 09:03 Comment) lactose AdvReac intolerant Verified 07/07/25 09:03 General Stated Complaint: Nk/Back Pain ROB: 3 Exam Narrative Exam Narrative: Vital signs: Reviewed. General Appearance: Alert and oriented. No acute distress. HEENT: NCAT, EOMI, not icteric. External ears normal. No rhinorrhea. Moist mucous membranes. Neck: Supple, full range of motion, no observable masses, No meningeal sign. Respiratory: No Respiratory distress. No tachypnea. Cardiovascular: RRR, no edema. Gastrointestinal: Soft, nondistended, No rebound tenderness. Back: Mild midline tenderness extending through thoracic and lumbar spine. Musculoskeletal: Tenderness over bilateral sciatic notch. Skin: Warm and dry, no rash. Neurological: Muscle strength 4/5 left hip flexor, 5/5 bilateral lower extremities. Patellar and ankle jerk reflexes 2+ bilaterally and symmetric. Gait normal, negative Romberg's. Psychiatric: Appropriate for situation. Course Vital Signs Vital signs: Vital Signs Temperature 36.7 C 07/07/25 08:35 Pulse 71 07/07/25 08:35 Respiratory Rate 16 07/07/25 08:35 Blood Pressure 122/84 07/07/25 08:35 Pulse Oximetry 96 07/07/25 08:35 Temperature 36.7 C 07/07/25 08:35 Temperature Source Oral 07/07/25 08:35 Pulse 71 07/07/25 08:35 Respiratory Rate 16 07/07/25 08:35 Blood Pressure 122/84 07/07/25 08:35 Blood Pressure Position Sitting 07/07/25 08:35 Pulse Oximetry 96 07/07/25 08:35 Oxygen Delivery Method Room Air 07/07/25 08:35 Oxygen Flow Rate 0 07/07/25 08:35 Pain Level 8 07/07/25 08:35 Lab/Test Results Lab/Test Results: Laboratory Tests Range/Units 07/07/25 07/07/25 09:25 12:44 WBC (4.4-10.8) 10^3/uL 15.16 H RBC (4.36-5.78) 10^6/uL 4.75 Hgb (13.5-17.5) g/dL 14.3 Hct (40.0-50.0) % 43.2 MCV (80-95) fL 91 MCH (27.0-33.0) pg 30.1 MCHC (32.0-36.0) % 33.1 RDW (11.8-14.1) % 13.2 Plt Count (130-400) 10^3/uL 336 MPV (8.0-11.0) fL 8.7 Immature Gran % See Differential Neutrophils % % 82.0 Band Neutrophils % % 1 Lymphocytes % % 7.0 Monocytes % % 8.0 Eosinophils % % 0.0 Basophils % % 0.0 Metamyelocytes % 2 Nucleated RBC % (0.0-0.3) % 0.0 Absolute Neutrophils (1.2-6.7) 10^3/uL 12.58 H Absolute Lymphocytes (1.2-3.4) 10^3/uL 1.06 L Absolute Monocytes (0.1-0.8) 10^3/uL 1.21 H Absolute Eosinophils (0.0-0.7) 10^3/uL 0.00 Absolute Basophils (0.0-0.2) 10^3/uL 0.00 RBC Morphology Normal Sodium (136-145) mmol/L 137 Potassium (3.5-5.1) mmol/L 4.5 Chloride (98-107) mmol/L 98 Carbon Dioxide (21.0-32.0) mmol/L 29.9 Anion Gap (3-11) mmol/L 9.1 BUN (7-18) mg/dL 22 H Creatinine (0.70-1.30) mg/dL 1.2 Est GFR (CKD-EPI 2020) (mL/min/1.73m2) 67.95 Glucose (74-106) mg/dL 137 H Calcium (8.5-10.1) mg/dL 9.2 Total Bilirubin (0.2-1.0) mg/dL 0.6 AST (15-37) U/L 14 L ALT (16-63) U/L 29 Alkaline Phosphatase (46-116) U/L 51 Total Protein (6.4-8.2) g/dL 7.2 Albumin (3.4-5.0) g/dL 3.7 Urine Color (Yellow) Yellow Urine Clarity (Clear) Clear Urine pH (5-8) 6.0 Ur Specific [place] (1.005-1.025) 1.015 Urine Protein (Neg-Trace) mg/dL Negative Urine Ketones (Negative) mg/dL Negative Urine Blood (Negative) Negative Urine Nitrite (Negative) Negative Urine Bilirubin (Negative) Negative Urine Urobilinogen (Up to 0.2) mg/dL 0.2 Ur Leukocyte Esterase (Negative) Negative Urine Glucose (Negative) mg/dL Negative Medical Decision Making Initial Assessment: 65-year-old male with lower back pain, more severe on left side, radiating down spine with movement. Difficulty urinating with dribbling stream for 1 week. History of spinal fusion surgery and recent PT. Differential Diagnosis: - Cauda equina syndrome: Concern due to difficulty urinating. Plan: Perform ultrasound to assess bladder, evaluate ability to empty bladder. - Peripheral nerve compression. - Doubt spinal epidural abscess due to lack of risk factors and fever - Doubt traumatic injury due to lack of history of such ED Course: - [id number] hours: Patient urinated. Ultrasound performed to assess bladder volume, which was approximately 35 mL r showing evidence of functional micturition withotu significant retention. 13:15 Following IV and oral rehydration, patient was finally able to urinate, and again in demonstrated for urinary bladder decompression is based on bedside ultrasonography. Urinalysis shows no evidence of infection. Patient also notes significant improvement in his pain which began as a 8 out of 10 down to 5 out of 10 following medications administered here today. Plan of care is discussed with the patient. He is in agreement with the plan to follow-up with [facility] for referral to spine surgeon as he does not want to be seen again a little in hospital related to his previous spine surgery, and he was also instructed to follow-up with urology due to his difficulty with a urine stream. Given that patient will likely have a long wait. Until he sees urology, will also offered to start him on tamsulosin, to see if his urinary difficulties improve prior to evaluation by urology. Patient will also be given a short prescription for oxycodone as he notes significant impact to his activities of daily life due to his pain. He was instructed this is not a long-term solution, continue follow-up physical therapy and spine surgery as above. Final Assessment: Presented with lower back pain and difficulty urinating. Ultrasound performed to evaluate bladder. Pain management discussed, consider short course of opiates if necessary. Ultrasound shows no evidence urinary retention. Reassuring neurological examination cauda equina unlikely in this patient. Will encourage patient to follow-up with his spinal surgeon, return emergency department for new or worsening symptoms. This document was created with assistance from [employer] Chief. The patient consented to its use. Quality:SDOH Health Related Social Needs: Health related social needs education Health related social needs details Speaks Tajik at home. PFSH All Active Problems (Updated 07/07/25 @ 13:20 by True Medina MD) Difficulty urinating (Acute) Lower back pain (Acute) Schmorl nodes of thoracic region (Acute) Bilateral sacroiliitis (Acute) Obesity (Chronic) Uncontrolled hypertension (Acute) History of prior cigarette smoking (Acute) Alcohol abuse (Chronic) Fracture of distal end of fibula (Acute 09/30/19) Medical History (Updated 07/07/25 @ 13:20 by True Medina MD) Perirectal abscess Surgical History (Updated 04/06/25 @ 14:10 by Saskia Ferguson CMA) Status post incision and drainage (~03/2025) perirectal abscess I&D x2 Social History Smoking/Tobacco Use Status: Former Tobacco Use Smoking risk assessment performed?: Yes Alcohol Intake: former Drug use: Daily Substance use type: marijuana Details: Pt states he smokes marijuana daily 06/29/25 Housing: house Current gender identity: male Do you feel safe at home: Yes Do you feel safe in your relationship?: Yes POCUS Exam (ED) Limited Bladder Exam DATE OF EXAM: 07/07/25 TIME OF EXAM: 09:37 PROVIDER THAT PERFORMED THE STUDY: True Medina REASON FOR EXAM: Urinary retention VISUALIZED STRUCTURES: Bladder PERTINENT FINDINGS/IMPRESSION: other (2-hour postvoiding bladder volume of 35 mL) impression: No evidence of acute urinary retention Exam complete
[2025-07-07 09:45] LABS: ALT 29 U/L (16-63); AST 14 U/L (15-37); Albumin 3.7 g/dL (3.4-5.0); Alkaline Phosphatase 51 U/L (46-116); Anion Gap 9.1 mmol/L (3-11); BUN 22 mg/dL (7-18); Bilirubin, Total 0.6 mg/dL (0.2-1.0); CO2 29.9 mmol/L (21.0-32.0); Calcium 9.2 mg/dL (8.5-10.1); Chloride 98 mmol/L (98-107); Estimated GFR 67.95 (mL/min/1.73m2); Glucose 137 mg/dL (74-106); Potassium 4.5 mmol/L (3.5-5.1); Sodium 137 mmol/L (136-145); Total Protein 7.2 g/dL (6.4-8.2)
[2025-07-07 09:49] LABS: RBC Morphology Normal
[2025-07-07] MEDS: Chlorthalidone 25 MG TAB PO (12:16)
[2025-07-07 13:03] LABS: Glucose Negative (Negative)
[2025-07-07 14:03] VITALS: PULSE 67; RESP 18; O2SAT 99
== END 2025-07-07 14:05 | disposition home or self-care (01) ==
PROVIDERS: Emergency Provider General Practice; PCP Internal Medicine
DX: M54.50 Low back pain, unspecified (principal); R39.89 Other symptoms and signs involving the genitourinary system
CPT/HCPCS: 99284; 99283; 36415; 76857; 80053; 96360; 96361; 81003; 85025; J7512

== ENCOUNTER 2025-08-06 00:08 | Outpatient (CLI) | payer OTHER, SELFPAY ==
--- NOTE | 2025-08-06 | DI.MRI_ITS ---
Exam(s) MR LUMBAR SPINE WO EXAM: MR LUMBAR SPINE WO CLINICAL HISTORY: [id number] LOW BACK PAIN M54.59 S/P CERVICAL FUSION 09/2024 DIFFICULTY. TECHNIQUE: Multiplanar multisequence MRI of the Lumbar spine was performed. COMPARISON: MR MR CERVICAL SPINE WO from 04/07/[address] THORACIC LUMBAR SPINE WO from 06/29/2025 FINDINGS: Bones: The last intervertebral disc space is designated the L5/S1 level for the numbering purpose of this examination. The vertebral body heights are well maintained. Alignment is satisfactory. The signal characteristics are unremarkable. Cord: It is of normal size and signal intensity. T12-L1: No disc herniations or bulges are present. No central spinal canal or neural foraminal stenosis. L1-2: No disc herniations or bulges are present. No central spinal canal or neural foraminal stenosis. L2-3: There is a diffuse disc bulge. The findings cause mild narrowing of the central spinal canal. There is no significant neural foraminal stenosis. L3-4: There is a diffuse disc bulge. Degenerative changes of the facets are present. There is mild resultant narrowing of the central spinal canal. Moderate bilateral neural foraminal stenosis, right greater than left. L4-5: There is a right paracentral disc herniation causing right lateral recess stenosis. There does appear to be some impingement on the right L5 nerve root. There are degenerative changes of the facets causing mild narrowing of the central spinal canal. There is moderately severe bilateral neural foraminal stenosis. L5-S1: There is a very small left paracentral disc herniation. It does appear to impinge upon the left S1 nerve root. Minimal narrowing of the central spinal canal is seen. There are degenerative changes of the facets.There is mild bilateral neural foraminal stenosis. Soft tissues: The visualized SI joints and sacrum are well maintained. The paraspinal soft tissues are unremarkable. Visualized abdominal organs: On the coronal images, there is a question of stranding or possible mass along the lateral aspect of the right kidney. IMPRESSION: 1. Multilevel degenerative changes in the lumbar spine. Multilevel central spinal canal and neural foraminal stenosis is seen. 2. There is a right paracentral disc herniation at L4-5 causing right lateral recess stenosis impinging upon the right L5 nerve root. 3. There is a small left paracentral disc herniation which appears to impinge upon the left S1 nerve root. 4. Soft tissue stranding or possible mass along the lateral aspect of the right kidney. CT scan of the abdomen is recommended with IV contrast. Unexpected findings DATA REPOSITORY:
--- NOTE | 2025-08-06 | DI.MRI_ITS ---
Exam(s) MR THORACIC SPINE WO EXAM: MR THORACIC SPINE WO CLINICAL HISTORY: [id number] LOW BACK PAIN M54.59 S/P CERVICAL FUSION 09/2024 DIFFICULTY. TECHNIQUE: Multiplanar multisequence MRI of the Thoracic spine was performed. COMPARISON: CT CT THORACIC LUMBAR SPINE WO from 06/29/2025 FINDINGS: Bones: The vertebral body heights are well maintained. Alignment is satisfactory. The signal characteristics are unremarkable. Cord: The thoracic cord is normal size and signal intensity. No intrinsic cord lesion is present. Discs: There is a mild diffuse disc bulge at T1-T2 but no significant central spinal canal or neural foraminal stenosis results. There is no central spinal canal or neural foraminal stenosis seen in the thoracic spine. Age appropriate mild degenerative changes are present throughout the cervical spine. Soft tissues: Normal. IMPRESSION: There is no central spinal canal or neural foraminal stenosis seen in the thoracic spine. DATA REPOSITORY:
== END 2025-08-06 00:28 ==
PROVIDERS: PCP Internal Medicine; Visit Provider Internal Medicine
DX: M54.59 Other low back pain (principal); M48.07 Spinal stenosis, lumbosacral region
CPT/HCPCS: 72146; 72148

== ENCOUNTER 2025-08-21 02:12 | Outpatient (CLI) | payer OTHER, SELFPAY ==
--- NOTE | 2025-08-21 | DI.CT_ITS ---
Exam(s) CT ABDOMEN WO/W EXAM: CT ABDOMEN WO/W CLINICAL HISTORY: [id number] MASS ON RT KIDNEY NOTED ON L SPINE MRI. TECHNIQUE: Imaging Protocol: Axial computed tomography images with coronal and sagittal reformatted images were created and reviewed Images were performed before IV contrast, during the venous phase is well as five-minute delay following IV contrast administration. CONTRAST MATERIAL: Intravenous: Omnipaque 350 Contrast volume:75 ml Oral: no COMPARISON: CT CT ABDOMEN PELVIS WO from 04/02/2025 MR MR LUMBAR SPINE WO from 08/06/2025 FINDINGS: ABDOMEN: Lung Bases: No acute findings. Liver: Normal density. No measurable mass. Gallbladder and biliary tract: No radiodense calculus. No biliary dilation. Pancreas: Normal density, no abnormal calcifications or inflammatory process. Spleen: Normal. Kidneys: Normal size, contour and axis. No radiodense stones or obstructive uropathy. No suspicious masses seen. There is mild bilateral perinephric stranding, similar to the prior noncontrast CT. Adrenal glands: No masses seen. Bowel: Unremarkable. The appendix appears normal. Abdominal Aorta: Abdominal portion non-dilated. Mild atherosclerotic changes. Lymph nodes: Within normal limits. Bones: Unremarkable for age. Soft tissues: Unremarkable. IMPRESSION: Chronic mild bilateral perinephric stranding. No evidence of mass, stones or hydronephrosis. RADIATION DOSE DELIVERED: Total DLP DATA REPOSITORY: All CT scans at this facility are submitted to the National Radiology Data Registry (NRDR) Dose Index Registry (DIR) with the [employer] (ACR). RADIATION OPTIMIZATION: All CT scans at this facility use at least one of these dose optimization techniques: automated exposure control; mA and/or kV adjustment per patient size (includes targeted exams where dose is matched to clinical indication); or iterative reconstruction.
[2025-08-21] MEDS: Normal Saline Flush 10 ML SYR IVP (09:13)
[2025-08-21] MEDS: Normal Saline - Diluent 50 ML VIAL IJ (09:13)
[2025-08-21] MEDS: Omnipaque 350 MG/ML 100 ML BTL IJ (09:14)
== END 2025-08-21 02:32 ==
PROVIDERS: PCP Internal Medicine; Visit Provider Internal Medicine
DX: N28.89 Other specified disorders of kidney and ureter (principal)
CPT/HCPCS: 74170; J3490

== ENCOUNTER 2025-09-04 08:42 | Day surgery (SDC) | payer OTHER, SELFPAY ==
--- NOTE | 2025-09-03 15:08 | W.PM.DSUDISC ---
Date of service: 09/04/25 Discharge Plan Disposition Patient Disposition: Home Condition: Fair Discharge Details Reason For Visit: Anorectal exam under scientific software engineer Provider: Silviano Jones Primary Care Provider: Renita Vargas Home Meds and New Rx's Prescriptions: New tramadol 50 mg tablet 50 mg PO Q8H PRNQty: 15 0RF Rx Instructions: Take 1 tablet by mouth up to every 8 hours if needed for severe pain polyethylene glycol 3350 [Miralax] 17 gram/dose powder 17 g PO BID Qty: 119 1RF Continued folic acid 1 mg Tablet 1 mg PO DAILY cholecalciferol (vitamin D3) [Vitamin D3] 5,000 unit Tablet 5,000 unit PO DAILY losartan [Cozaar] 100 mg tablet 100 mg PO DAILY atorvastatin 40 mg tablet 20 mg PO DAILY chlorthalidone 25 mg tablet 25 mg PO DAILY cetirizine [24Hour Allergy] 10 mg tablet 10 mg PO DAILY fluticasone propion-salmeterol [Advair Diskus] 100-50 mcg/dose blister with device 1 inh inhalation BID cyclobenzaprine 10 mg tablet 5 mg PO TID PRN Patient Comments: TAKE ONE TABLET BY MOUTH THREE TIMES A DAY NEEDED Discharge Instructions Additional Instructions: Humberto was good seeing you today, and I hope you make a smooth and uneventful transition home. As we suspected, there was a fistula, or a connection between the external wound on your buttock to the lower portion of your anus. I did remove this today. You had quite a bit of scar tissue in the area from your previous abscess, so it is a rather complicated wound. It is closed in multiple layers, with a drain in the deeper tissues in an effort to help prevent infection. As you will see after you remove the dressings, there is a white plastic drain exiting the bottom portion of the incision. Beginning this evening, I would like you to irrigate this. Will send you home with a syringe, which you should fill with warm clean water. Sit on the toilet, and put the end of the syringe into the inner portion of the white drain. Pinched this around the end, and flushed the water in. Disconnect the syringe, and allow the drain to empty into the toilet. There will also be some drainage through the stitches at the incision site. You should repeat this after each bowel movement, and at least once in the morning and once in the evening. I have added a prescription for some MiraLAX to help ensure that you have soft and easy bowel movements. Mix a capful of the MiraLAX with 8 ounces of the beverage of your choice in the morning, and repeat this in the evening. I would encourage you to get some moist towelettes to help with hygiene after bowel movements. Try to be careful with the incision. I have also added a prescription for a pain medication called tramadol. I suggest that you alternate [id number] Tylenol and ibuprofen every 6 hours for the first 2 days, and supplement this with the tramadol if you need it. After 48 hours or so, you can just use pain medications as needed. I tried to use a long-acting pain medication to help with the incisional discomfort. Topical treatments with things like Tucks pads, or hemorrhoid cream would also be very reasonable if you find that comforting. I have scheduled a follow-up appointment in the office on September 20. If you have any issues at all in the meantime, please call us immediately, and we can bring you in sooner. Referrals: Silvinao Jones MD [ [facility] STAFF PHYSICIAN, Surgery] - 09/20/25 9:00 am Activity:: Activity as Tolerated Remove Dressings/Wound Care:: 24 hours Shower/Bathe:: 24 hours Diet:: As Tolerated Discharge Orders Discharge Orders: Discharge Order (Routine); Ordered 09/03/25 Ordered By: Silviano Jones DS: Diagnosis Discharge Diagnosis (1) [id number]: Status: Acute Asessment and Plan: Discharge home with instructions. Outpatient follow-up
--- NOTE | 2025-09-03 15:09 | ROE_ITS ---
Operative Note Operative Note PRE-OP DIAGNOSIS: Fistula in ano POST-OP DIAGNOSIS: same PROCEDURE: Anorectal exam under anesthesia, flexible sigmoidoscopy, excision and closure of fistula in ano SURGEON: Silviano Jones TOMOGRAPHIC TECH: Karmen Mullins ANESTHESIA TYPE: Local By Surgeon and General LMA/ETT Refer to Anesthesia Record ESTIMATED BLOOD LOSS: 25 PATHOLOGY: other (fistula in ano) COMPLICATIONS: None Patient was transported to: PACU Patient's condition: stable Indications: Humberto is a 65-year-old male with past medical history of complex perianal abscess that required incision and drainage. His recovery was complicated by clinical features concerning for a fistula and a Findings: Posterior curved fistula in ano Procedure Description: I met with Humberto in the preoperative area, and we reviewed the plan for an anorectal exam under anesthesia, flexible sigmoidoscopy, and likely excision of a perianal fistula. He had the opportunity to ask any new questions. Next, we moved back to the operating room, and general endotracheal anesthesia was initiated. He was then rolled onto the operating room table into the prone position. Great care was taken to pad him and support him appropriately. Genitals were not under any pressure. There is an area of granulation posterior to the transanal line approximately 5 cm from the anus. Clinical features do look like a fistula. I performed a digital rectal exam which felt normal. Next, I performed flexible sigmoidoscopy. I advanced the camera into the rectum and perform retroflexion. The distal rectum and the proximal anal column generally look healthy. There is no evidence of any granulation within the rectal vault. There is no evidence of ulcerative colitis or Crohn's disease. I extended the camera up to the proximal portion of the sigmoid colon, which was also healthy and normal-appearing. I then evacuated the insufflated gas, as well as a little bit of liquid stool and remove the camera. Next, with Humberto still in the prone position, and slightly jackknife, I prepped and draped the anus, perineum, and buttocks. Using a 16-gauge Angiocath, I cannulated the suspected fistula. I instilled some hydrogen peroxide, and immediately there was some bubbling at the distal portion of the anal column. Next, using a Ocampo retractor, I was able to identify the proximal aspect of the fistula. It was just at the dentate line. I can palpate the tract extending in a slightly curvilinear fashion to the posterior midline opening. This feels superficial to the sphincter complex. In that regard, I think would benefit from fistulectomy. Therefore, I established a generous field block along the trajectory of the fistula using local anesthetic mixed with Exparel. I then made a incision overlying the curvilinear nature of the palpated tract, encircling the entirety of the distal portion. Electrocautery was used to assist with hemostasis. A lacrimal duct probe was then used to cannulate the fistula and help support it for retraction. Electrocautery was then used to circumferentially dissect the trajectory of the fistula towards the anal opening. Great care was taken to gently dissect the surrounding soft tissues off of the fistula tract, which was superficial to the sphincters. There were some dense adhesions along the way that seem consistent with his previous abscess drainage. This required some tedious dissection. Once the fistula was completely mobilized to the proximal opening, it was divided from the surrounding soft tissues, passed off as a pathologic specimen. The wound was then irrigated. Few areas of bleeding were easily cauterized. The deep tissue was then reapproximated with some 2-0 interrupted Vicryl sutures to reconstruct the anal verge. The distal rectal mucosa and anal mucosa was reapproximated with interrupted 3-0 Vicryl suture. Given the extent of the dissection into the soft tissue of the buttock, and the extent of the previous abscess cavity, I did think that leaving a drain would be the most appropriate action here. Therefore, I cut a few openings into 1/4 inch [place] drain, and advanced this into some of the deeper tissue. The overlying tissue was reapproximated with interrupted 2-0 Vicryl's. The distal portion of the [place] was affixed to the skin with an interrupted Prolene suture. The Stephen was left to sufficient length for postoperative irrigation. The remaining skin was reapproximated with interrupted 3-0 Vicryl's down to the level of the Stephen drain. The surgical site was then cleansed, and a anisha-pad was used to secure the drain in place. Humberto was then rolled back to the supine position, extubated, and transferred to the recovery unit. Date of Procedure: 09/04/25
[2025-09-04] VITALS (11 sets, daily range): BP systolic 119–148; BP diastolic 72–89; PULSE 57–94; RESP 13–19; TEMP 36.1–36.6; O2SAT 92–100; BMI 30.8
[2025-09-04] MEDS: Gabapentin 300 MG CAP PO (09:10)
[2025-09-04] MEDS: Acetaminophen 500 MG TAB 1000 MG PO (09:10)
[2025-09-04] MEDS: Celecoxib 200 MG CAP PO (09:10)
[2025-09-04] MEDS: Na Phosphate Enema-Adult 133 ML BTL 266 ML PR ×2 (09:22→09:37)
--- NOTE | 2025-09-04 09:29 | ANES.PREOP_ITS ---
General Info Date of Service Date Performed: 09/04/25 Height: 5 ft 7 in Weight: 89.3 kg Body Mass Index (BMI): 30.8 Surgical Procedure: Operation Date: 09/04/25 10:40 Proposed Procedure Side Surgeon p Anorectal Exam Under Anesthesia, Possible Fistulectomy Silviano Jones MD s Possible Flexible Sigmoidoscopy Silviano Jones MD Meds Allergies and Home Medications Allergies Allergy/AdvReac Type Severity Reaction Status Date / Time disulfiram Allergy Unknown Unknown Verified 09/04/25 09:01 lisinopril AdvReac Mild Other (See Verified 09/04/25 09:01 Comment) lactose AdvReac intolerant Verified 09/04/25 09:01 Home Medication ?Medication ?Instructions ?Recorded cholecalciferol (vitamin D3) 125 5,000 unit PO DAILY 0 07/25/19 mcg (5,000 unit) tablet (Vitamin D3) folic acid 1 mg tablet 1 mg PO DAILY 07/25/19 atorvastatin 40 mg tablet 20 mg PO DAILY 04/07/24 losartan 100 mg tablet (Cozaar) 100 mg PO DAILY chlorthalidone 25 mg tablet 25 mg PO DAILY 04/02/25 cetirizine 10 mg tablet (24Hour 10 mg PO DAILY 5 Allergy) fluticasone 100 mcg-salmeterol 50 1 inh inhalation BID 06/29/25 mcg/dose blistr powdr for inhalation (Advair Diskus) cyclobenzaprine 10 mg tablet 5 mg PO TID PRN 08/31/25 Current Visit Medications: Current Medications Generic Name Dose Route Start Last Admin Trade Name Freq PRN Reason Stop Dose Admin Acetaminophen 1,000 mg 09/04/25 06:00 09/04/25 09:10 Acetaminophen 500 Mg Tab PO 09/04/25 23:59 1,000 mg PREOP SALLY Administration Celecoxib 200 mg 09/04/25 06:00 09/04/25 09:10 Celecoxib 200 Mg Cap PO 09/04/25 23:59 200 mg PREOP SALLY Administration Gabapentin 300 mg 09/04/25 06:00 09/04/25 09:10 Gabapentin 300 Mg Cap PO 09/04/25 23:59 300 mg PREOP SALLY Administration Ringer's Solution 1,000 mls @ 80 mls/hr 09/04/25 06:00 IV 09/04/25 23:59 INFUSION SALLY Ringer's Solution 1,000 mls @ 80 mls/hr 09/04/25 06:00 IV 09/04/25 23:59 INFUSION [facility] IV Miscellaneous Supplies 1 each 09/04/25 06:00 Iv Access IV 09/04/25 23:59 DIRECTED SALLY IV Miscellaneous Supplies 1 each 09/04/25 06:00 Iv Access IV 09/04/25 23:59 DIRECTED SALLY Sodium Biphosphate/Sodium Phosphate 266 ml 09/04/25 06:00 09/04/25 09:22 Na Phosphate Enema-Adult 133 Ml Btl SD 09/04/25 23:59 1 applic DIRECTED PRN Administration Sodium Chloride 0 ml 09/04/25 06:00 Normal Saline Flush 10 Ml Syr IV 09/04/25 23:59 PRN PRN Sodium Chloride 0 ml 09/04/25 06:00 Normal Saline 10 Ml Vial IJ 09/04/25 23:59 DIRECTED PRN Sodium Chloride 0 ml 09/04/25 06:00 Normal Saline Flush 10 Ml Syr IV 09/04/25 23:59 PRN PRN Sodium Chloride 0 ml 09/04/25 06:00 Normal Saline 10 Ml Vial IJ 09/04/25 23:59 DIRECTED PRN Sterile Water 0 ml 09/04/25 06:00 Water,Injection,Sterile 10 Ml Vial IJ 09/04/25 23:59 DIRECTED PRN Sterile Water 0 ml 09/04/25 06:00 Water,Injection,Sterile 10 Ml Vial IJ 09/04/25 23:59 DIRECTED PRN PFSH Active Problems Active Problems: Problem Status Onset Code [id number] Acute K60.30 Obesity Chronic E66.9 Uncontrolled hypertension Acute I10 History of prior cigarette smoking Acute Z87.891 Alcohol abuse Chronic F10.10 Fracture of distal end of fibula Acute 09/30/19 S82.839A Medical History Medical History Lumbar disc herniation f/u scheduled with neurosurgery to discuss lumbar mri disc herniations and back pain upcoming 08/22/25 Tinea unguium Polyp of colon Personal history of nicotine dependence Otalgia, left ear Obstructive sleep apnea, adult Multiple nodules of lung Major depressive disorder, recurrent, moderate Essential hypertension Dyspnea Chronic obstructive pulmonary disease, unspecified Benign lipomatous neoplasm, unspecified Allergic rhinitis Alcohol dependence with alcohol-induced mood disorder Acute kidney failure Perirectal abscess Medical History Comments:: Smokes georgeuna daily throughout day Surgical History Surgical History S/P cervical spinal fusion (~2023) Status post incision and drainage (~03/2025) perirectal abscess I&D x2 Tobacco Smoking/Tobacco Use Status: Former Tobacco Use Passive smoking exposure: No Alcohol Alcohol Intake: former Substance Use Substance use: Daily Substance use type: marijuana Details: Pt states he smokes marijuana daily Vital Signs and Lab Results Vital Signs Most Recent Vital Signs in EMR: Most Recent Vital Signs Temp Pulse Resp BP Pulse Ox 36.1 C L 94 H 18 137/80 97 09/04/25 09:03 09/04/25 09:03 09/04/25 09:03 09/04/25 09:03 09/04/25 09:03 Imaging and Studies Imaging and Studies Study information below may be from another EMR and interpreted by another provider. Please see original notes in EMR for more complete details. EKG Summary: 04/02/25: Exam: Resting ECG Reason for Exam: syncope Patient Location: E HR:96 bpm ECG Measurements Heart Rate 96 AXIS SD 147 P 61 QRSd 76 QRS 54 QT 332 T8 QTc 421 Conclusion Sinus rhythm 96 normal axis bigeminy no stemi Anesthesia Assessment and Plan Anesthesia History Personal History: No History of Anesthesia Complications Family History: No Family History of Anesthesia Complications Exercise Tolerance Exercise Tolerance: Metabolic Equivalents>4 Pertinent Negatives Pertinent Negatives: No Symptoms of GERD Cardiac & Pulmonary Exam Cardiac Exam: Normal S1/S2 Heart Sounds Pulmonary Exam: Wheezing Present (THC smoker) Implantable Cardiac Device Does patient have a Pacemaker or an ICD?: No Airway Exam Known Difficult Airway: No Mallampati Class: 2 Mouth Opening: Normal (> 3cm) Thyromental Distance: Greater than 3 cm Neck Range of Motion: Full ROM Neck Circumference: Normal Teeth Condition: Generalized Poor Dentition and Other Airway Comments: All teeth missing except #44, 43, 32, 34 ASA Classification ASA Score: ASA 2 Emergency Case?: No NPO Status NPO Status: NPO Clears >2 hours, Solids >8 hours Anesthesia Plan Resuscitation Status: Full Code Anesthesia Technique: General Anesthesia Airway Planned: Endotracheal Tube Monitors Used: Standard Monitors
[2025-09-04] MEDS: Lactated Ringers 1,000 ML 80 ML IV (10:00)
[2025-09-04] MEDS: Hydrogen Peroxide 3% 480 ML BTL (11:00)
[2025-09-04] MEDS: Bupivacaine 0.5% Pres-Free 30 ML VIAL (11:12)
[2025-09-04] MEDS: Bupivacaine LIPOSOME/PF 133 MG/10 ML VIAL IJ (11:12)
--- NOTE | 2025-09-04 11:25 | BOWEL_PTH ---
PATIENT: Selvin Haskins LOC: [facility] U#:[id number] AGE/SX: 65/M ROOM: RE09/04/[address]: Silviano Jones MD : 1960 BED: DIS: 09/04/2025 SPEC #: [id number] RECD: 09/04/25 15:59 STATUS: TY REQ #: [id number] BARTOLOME: 09/04/25 11:[address]: Silviano Jones DEPT: Surgical Specimen RECD BY: Yenifer Greco ENTERED: 09/04/25 16:00 SP TYPE: Bowel OTHR DR: Renita Vargas Tissues: 1 - FISTULA/FISSURE Procedures: GROSS AND MICRO LEVEL 3 Comments: [id number]
--- NOTE | 2025-09-04 13:02 | W.ANESPOSTOP ---
Postoperative Evaluation Date, Time and Location Date Performed: 09/04/25 Time Performed: 13:02 Patient Location: Day Surgery Unit Vital Signs Most Recent Imported Vital Signs: Most Recent Vital Signs Temp Pulse Resp BP Pulse Ox 36.3 C L 60 16 141/83 H 95 09/04/25 12:30 09/04/25 12:30 09/04/25 12:30 09/04/25 12:30 09/04/25 12:30 Pain Score Most Recent Pain Score: Most Recent Pain Score Pain Level 0 09/04/25 12:30 Assessment Mental Status: Awake (Alert & Oriented to Patient Baseline) Airway and Respiratory Function: Patent airway with normal (patient baseline) respiratory exam Cardiovascular Function: Hemodynamically Stable Hydration Status: Adequately Hydrated Nausea & Vomiting: No Nausea or Vomiting Pain: Pt. Denies Any Pain Peripheral Nerve Block: Patient did not receive a nerve block
== END 2025-09-04 13:15 | disposition home or self-care (01) ==
LOC: SUR 08:42
PROVIDERS: PCP Internal Medicine; Visit Provider Surgery
PROC: (CPT 46270; principal; 2025-09-04 10:30)
PROC: 0DJD8ZZ Inspection of Lower Intestinal Tract, Via Natural or Artificial Opening Endoscopic (ICD-10-PCS; CPT 45330; 2025-09-04 10:30)
DX: K60.30 Anal fistula, unspecified (principal)
CPT/HCPCS: 46270; 88304; J0665; J0666; J1100; J2003; J2250; J2405; J2704; J3010